=== PATIENT | female | born 1965 | race Caucasian/White ===

== ENCOUNTER 2016-08-17 17:12 | Emergency (ER) | payer BC, OTHER ==
[2016-08-17] MEDS ORDERED: Ondansetron INJ* 2 MG/ML VIAL IV ONE (18:40)
[2016-08-17] MEDS ORDERED: NS 0.9% 1000 ML* 1,000 ML IV ONE (18:40)
[2016-08-17] MEDS ORDERED: diPHENhydraMINE IV* 50 MG/ML 1 ml VIAL (BENADRYL) IV ONE (18:40)
[2016-08-17] MEDS ORDERED: Ketorolac INJ* 30 MG/ML 1 ML VIAL IV ONE (18:40)
[2016-08-17 20:13] LABS: Hematocrit 37 % (35-47); Hemoglobin 12.1 g/dl (12.0-16.0); Mean Corpuscular HGB Conc 33 g/dl (31-36); Mean Corpuscular Hemoglobin 28 pg (27-31); Mean Corpuscular Volume 86 fL (80-97); Mean Platelet Volume 7 um3 (7.4-10.4); Red Blood Count 4.34 10^6/ul (4.0-5.4); Red Cell Distribution Width 14 % (10.5-15); White Blood Count 10.1 10^3/ul (3.5-10.8)
[2016-08-17 20:37] LABS: Albumin 4.2 g/dL (3.2-5.2); BUN/Creatinine Ratio 13.1 (8-20); Calcium 9.6 mg/dL (8.6-10.3); EGFR African American 76.1 (>60); EGFR Non-African American 59.1 (>60); Globulin 3.2 g/dL (2-4); Potassium 4.1 mmol/L (3.5-5.0); Total Bilirubin 0.6 mg/dL (0.2-1.0); Total Protein 7.4 g/dL (6.4-8.9)
[2016-08-17] MEDS ORDERED: Diazepam TAB(*) 5 MG PO ONE (20:41)
[2016-08-17] MEDS ORDERED: Iodixanol* (CONTRAST) 320 MG/ML 100 ML SDV IV ONE (20:54)
[2016-08-17 21:16] VITALS: BP 140/71
--- NOTE | 2016-08-17 22:07 | RAD ---
INDICATION: Headache with left-sided neurologic changes which have resolved. COMPARISON: There are no prior studies available for comparison. TECHNIQUE: Contiguous axial sections of the brain were obtained from the skull base to the vertex without contrast. FINDINGS: The ventricles, cisterns and sulci are within normal limits. There appears to be a small lacunar infarct present within the right lentiform nucleus. No other focal abnormalities or mass effect are seen. There is no evidence for hemorrhage. No significant focal osseous abnormality is seen. The visualized portion of the paranasal sinuses and mastoid air cells appear clear. IMPRESSION: 1. NO EVIDENCE FOR GROSS ACUTE INFARCT, MASS EFFECT OR HEMORRHAGE. 2. 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
--- NOTE | 2016-08-17 22:19 | RAD ---
INDICATION: Headache, left-sided neurologic signs resolved. COMPARISON: Comparison is made with a prior CT of the brain of the same day. TECHNIQUE: A CT angiogram of the head and neck was performed following intravenous injection of 80 ml of Visipaque 320 nonionic contrast. Contiguous axial sections were obtained from the thoracic inlet through the skull vertex. Images were reconstructed in the coronal and sagittal planes and in a 3-D volume rendered format. The distal cervical internal carotid artery diameter is used as the denominator for stenosis measurement. FINDINGS: RIGHT CAROTID: The common and internal carotid arteries appear patent without evidence for hemodynamically significant stenosis. LEFT CAROTID: The common and internal carotid arteries appear patent without evidence for hemodynamically significant stenosis. VERTEBRALS: The vertebral arteries appear patent and bilaterally symmetric. CTA BRAIN: The internal carotid, anterior and middle cerebral arteries appear patent without evidence for high-grade stenosis or occlusion. The vertebral, basilar and posterior cerebral arteries appear patent without evidence for high-grade stenosis or occlusion. No aneurysm or vascular malformation is seen. No areas of hypoperfusion are seen. The lung apices appear clear. No significant enlarged lymph nodes are seen. The parotid, submandibular and thyroid gland appear within normal limits. IMPRESSION: NO EVIDENCE FOR CAROTID STENOSIS OR LARGE VESSEL INTRACRANIAL THROMBUS. CPT II Codes: 3100F
--- NOTE | 2016-08-17 22:29 | ED ---
Nirmala Oconnell Erika, scribed for Indiana Mensah MD on 08/17/16 at 1836 . Neurological HPI - HPI Summary HPI Summary: Patient is a 51-year-old female presenting to the ED with a CC of migraine. Pt has a Hx migraines, and is followed by Dr. Heredia. The current migraine started at 15:00 today. Around 16:30, she lost her vision in her left eye, then developed left-sided weakness, and then developed numbness of her mouth. The only symptom still present is the right-sided migraine. She does now note nausea and vomiting. Pt was referred to the ED by Dr. Anthony for CT and CTA. Pt has a Hx and FHx migraines. She does not smoke or drink. Pt lives with her , and is employed. - History of Current Complaint Stated Complaint: MIGRAINE Time Seen by Provider: 08/17/16 17:13 Hx Obtained From: Patient, EMS Onset/Duration: Gradual Onset, Started hours ago, Resolved - mostly Timing: Constant Onset Severity: Moderate Current Severity: Mild Headache Location: Diffuse (Right) Character: Numbness/Tingling - mouth, Motor Weakness - L side, Sensory Loss - left visual loss Associated Signs and Symptoms: Positive: Nausea/Vomiting - Allergy/Home Medications Allergies/Adverse Reactions: Allergies Allergy/AdvReac Type Severity Reaction Status Date / Time Sumatriptan [From Imitrex] Allergy Intermediate Vomiting Verified 01/05/14 09:57 Narcotics Allergy Severe See Comment Uncoded 01/05/14 09:57 PMH/Surg Hx/FS Hx/Imm Hx Cardiovascular History: Denies: Hx Pacemaker/ICD Respiratory History: Reports: Hx Asthma - INHAILER NEEDED GI History: Reports: Other GI Disorders - ABD PAIN UNKNOW ORIGIN-FOLLOWING GASTRO DOCTOR Sensory History: Denies: Hx Hearing Aid Neurological History: Reports: Hx Migraine Psychiatric History: Denies: Hx Panic Disorder - Cancer History Hx Chemotherapy: No Hx Radiation Therapy: No - Surgical History Surgery Procedure, Year, and Place: TUBAL LIGATION; BENIGN LUMP-PART OF TONSILS REMOVED - Immunization History Date of Tetanus Vaccine: Unknown Infectious Disease History: Denies: Traveled Outside the [place] in Last 30 Days - Family History Known Family History: Positive: Other - migraine - Social History Occupation: Employed Full-time Lives: With Family Alcohol Use: None Hx Substance Use: No Substance Use Type: Reports: None Hx Tobacco Use: No Smoking Status (MU): Never Smoked Tobacco Review of Systems Eyes: Other - lost vision in left eye Positive: Vomiting, Nausea Positive: Headache, Weakness - left-sided, Numbness - mouth All Other Systems Reviewed And Are Negative: Yes Physical Exam Triage Information Reviewed: Yes Vital Signs On Initial Exam: Temp Pulse Resp BP Pulse Ox 98.9 F 88 16 140/71 99 08/17/16 17:15 08/17/16 21:00 08/17/16 20:54 08/17/16 20:00 08/17/16 21:00 Vital Signs Reviewed: Yes Appearance: Positive: Well-Appearing, No Pain Distress Skin: Positive: Warm, Skin Color Reflects Adequate Perfusion, Dry Eyes: Positive: EOMI, RICARDO ENT: Positive: Pharynx normal, TMs normal Neck: Positive: Supple, Nontender Respiratory/Lung Sounds: Positive: Clear to Auscultation, Breath Sounds Present. Negative: Rales, Rhonchi, Wheezes Cardiovascular: Positive: RRR, Other - No gallops. Negative: Murmur, Rub Abdomen Description: Positive: Nontender, Soft, Other: - No rebound. Negative: Distended, Guarding Bowel Sounds: Positive: Present Musculoskeletal: Positive: Other - JIA, no edema Neurological: Positive: Sensory/Motor Intact, Alert, Oriented to Person Place, Time, Other - CN II-XII intact. See NIH stroke scale Psychiatric: Positive: Affect/Mood Appropriate Diagnostics - Vital Signs Vital Signs Temp Pulse Resp BP Pulse Ox 08/17/16 21:00 88 99 08/17/16 20:54 16 08/17/16 20:00 81 140/71 100 08/17/16 19:00 128/65 08/17/16 18:30 75 121/65 99 08/17/16 18:12 110/72 08/17/16 18:08 79 99 08/17/16 18:07 79 99 08/17/16 17:15 98.9 F 72 18 141/92 100 - Laboratory Lab Results: Lab Results 08/17/16 08/17/16 Range/Units 19:30 19:30 WBC 10.1 (3.5-10.8) 10^3/ul RBC 4.34 (4.0-5.4) 10^6/ul Hgb 12.1 (12.0-16.0) g/dl Hct 37 (35-47) % MCV 86 (80-97) fL MCH 28 (27-31) pg MCHC 33 (31-36) g/dl RDW 14 (10.5-15) % Plt Count 343 (150-450) 10^3/ul MPV 7 L (7.4-10.4) um3 Neut % (Auto) 72.4 (38-83) % Lymph % (Auto) 21.6 L (25-47) % Johnson % (Auto) 4.6 (1-9) % Eos % (Auto) 0.7 (0-6) % Baso % (Auto) 0.7 (0-2) % Absolute Neuts (auto) 7.3 (1.5-7.7) 10^3/ul Absolute Lymphs (auto) 2.2 (1.0-4.8) 10^3/ul Absolute Monos (auto) 0.5 (0-0.8) 10^3/ul Absolute Eos (auto) 0.1 (0-0.6) 10^3/ul Absolute Basos (auto) 0.1 (0-0.2) 10^3/ul Absolute Nucleated RBC 0.01 10^3/ul Nucleated RBC % 0.1 Sodium 135 (133-145) mmol/L Potassium 4.1 (3.5-5.0) mmol/L Chloride 101 (101-111) mmol/L Carbon Dioxide 27 (22-32) mmol/L Anion Gap 7 (2-11) mmol/L BUN 13 (6-24) mg/dL Creatinine 0.99 H (0.51-0.95) mg/dL Est GFR ( Amer) 76.1 (>60) Est GFR (Non-Af Amer) 59.1 (>60) BUN/Creatinine Ratio 13.1 (8-20) Glucose 86 (70-100) mg/dL Calcium 9.6 (8.6-10.3) mg/dL Total Bilirubin 0.60 (0.2-1.0) mg/dL AST 24 (13-39) U/L ALT 28 (7-52) U/L Alkaline Phosphatase 21 L (34-104) U/L Total Protein 7.4 (6.4-8.9) g/dL Albumin 4.2 (3.2-5.2) g/dL Globulin 3.2 (2-4) g/dL Albumin/Globulin Ratio 1.3 (1-3) Result Diagrams: 08/17/16 19:30 08/17/16 19:30 Lab Statement: Any lab studies that have been ordered have been reviewed, and results considered in the medical decision making process. - CT CT Brain CT Interpretation Completed By: Radiologist - IMPRESSION: 1. NO EVIDENCE FOR GROSS ACUTE INFARCT, MASS EFFECT OR HEMORRHAGE. 2. 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 CTA Head CT Interpretation Completed By: Radiologist NIH Scale - NIH Scale Level of Consciousness: Alert/Keenly Responsive Ask Patient the Month and His/Her Age: Both Correct Ask Pt to Open/Close Eyes and Neurophysiology Tech/Release Non-Paretic Hand: Both Correctly Best Gaze (Only Horizontal Eye Movement): Normal Visual Field Testing: No Visual Loss Facial Paresis-Pt to Smile & Close Eyes or Grimace Symmetry: Normal/Symmetrical Motor Function - Right Arm: No Drift-Holds 10 Seconds Motor Function - Left Arm: No Drift-Holds 10 Seconds Motor Function - Right Leg: No Drift-Holds 10 Seconds Motor Function - Left Leg: No Drift-Holds 10 Seconds Limb Ataxia-Must be out of Proportion to Weakness Present: Absent Sensory (Use Pinprick to Test Arms/Legs/Trunk/Face): Normal Best Language (Describe Picture, Name Items): No Aphasia Dysarthria (Read Several Words): Normal Extinction and Inattention: No Abnormality Total Score: 0 Course/Dx - Course Course Of Treatment: pt with neurologic symptoms and migraine today, neuro symptoms had resolved before arrival ct and cta head and neck neg ok to followup with neurology - Diagnoses Provider Diagnoses: Migraine Discharge - Discharge Plan Condition: Stable Disposition: HOME Patient Education Materials: Migraine Headache (ED) Referrals: Susy Hodges MD [Primary Care Provider] - Marisela Heredia MD [Medical Doctor] - The documentation as recorded by the Nirmala schaffer Erika accurately reflects the service I personally performed and the decisions made by me, Indiana Mensah MD.
== END 2016-08-17 22:45 | disposition home or self-care (01) ==
LOC: ED 17:12
DX: G43.909 Migraine, unspecified, not intractable, without status migrainosus (principal); R11.2 Nausea with vomiting, unspecified; R51 Headache; R53.1 Weakness
CPT/HCPCS: 36415; 70450; 70496; 70498; 80053; 85025; 96374; 96375; 99283; A9270-GY; J1200; J1885; J2405; Q9967

== ENCOUNTER 2017-05-27 06:33 | Emergency (ER) | payer BC, OTHER ==
[2017-05-27] MEDS ORDERED: NS 0.9% 1000 ML* 1,000 ML IV SCH (07:00)
[2017-05-27] MEDS ORDERED: Ondansetron INJ* 2 MG/ML VIAL IV ONE (07:04)
[2017-05-27] MEDS ORDERED: Ketorolac INJ* 30 MG/ML 1 ML VIAL IV PUSH ONE (07:05)
[2017-05-27 07:41] LABS: Hematocrit 38 % (35-47); Hemoglobin 12.5 g/dl (12.0-16.0); Mean Corpuscular HGB Conc 33 g/dl (31-36); Mean Corpuscular Hemoglobin 28 pg (27-31); Mean Corpuscular Volume 85 fL (80-97); Mean Platelet Volume 7 um3 (7.4-10.4); Red Blood Count 4.46 10^6/ul (4.0-5.4); Red Cell Distribution Width 15 % (10.5-15); White Blood Count 8.2 10^3/ul (3.5-10.8)
[2017-05-27] MEDS ORDERED: Metoclopramide IV* 5 MG/ML 2 ML VIAL IV ONE (07:41)
[2017-05-27] MEDS ORDERED: diPHENhydraMINE IV* 50 MG/ML 1 ml VIAL (BENADRYL) IV ONE (07:41)
[2017-05-27 07:52] LABS: Calcium 9.6 mg/dL (8.6-10.3); EGFR African American 106.4 (>60); EGFR Non-African American 82.7 (>60); Potassium 3.6 mmol/L (3.5-5.0)
[2017-05-27] MEDS ORDERED: LORazepam INJ* 2 MG/ML 1 ML VIAL IV ONE (08:33)
[2017-05-27 10:01] VITALS: BP 136/79
--- NOTE | 2017-05-27 12:43 | PN ---
Bear Oconnell SooYoung, scribed for Parker Lazar MD on 05/27/17 at 0858 . Progress Note - Progress Note Date of Service: 05/27/17 Note: SO from Dr. Puga at shift change, pending labs, reeval, dispo. 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 Pt migraine has improved. DX: MIGRAINE HEADACHE DISPO: Stable, home. F/U with PCP. The documentation as recorded by the jarrellibBaer jin SooYoung accurately reflects the service I personally performed and the decisions made by , Parker Lazar MD.
== END 2017-05-27 10:00 | disposition home or self-care (01) ==
LOC: ED 06:33
DX: G43.909 Migraine, unspecified, not intractable, without status migrainosus (principal)
CPT/HCPCS: 36415; 80048; 85025; 96374; 96375; 99282; J1200; J1885; J2060; J2405; J2765

== ENCOUNTER 2018-01-28 12:49 | Emergency (ER) | payer BC, OTHER ==
[2018-01-28] MEDS ORDERED: Metoclopramide IV* 5 MG/ML 2 ML VIAL IV ONE (13:15)
[2018-01-28] MEDS ORDERED: Ketorolac INJ* 30 MG/ML 1 ML VIAL IV PUSH ONE (13:15)
[2018-01-28] MEDS ORDERED: diPHENhydraMINE IV* 50 MG/ML 1 ml VIAL (BENADRYL) IV ONE (13:15)
[2018-01-28] MEDS ORDERED: NS 0.9% 1000 ML* 1,000 ML IV ONE (13:15)
--- NOTE | 2018-01-28 13:27 | ED ---
Headache - HPI Summary HPI Summary: This is [address] documenting for attending Miguel Angel Ramos M.D. Pt is a 52 y/o female who presents to the ED c/o migraine since 11:00. She states she started to feel nauseated before work, but this resolved. The headache began over her right forehead and she lost vision in her right eye, which is normal. The pain is now over the left forehead, which is unusual. She also c/o photophobia, neck pain, and right arm numbness/tingling. Pt states she went home from work and felt sicker than usual. She tried to call her friends for help but couldnt recognize the names. Pain is rated 8/10 in severity. PMHx migraine, and sees Dr. Heredia. - History Of Current Complaint Chief Complaint: EDHeadache Stated Complaint: MIGRAINE Time Seen by Provider: 01/28/18 13:14 Hx Obtained From: Patient Onset/Duration: Gradual Onset, Started hours ago - 11:00, Still Present Initially Headache Was: Severe Currently Pain Is: Current Pain Scale(0-10)= - 8, Severe Timing: Constant Character: Migraine Location of Headache: Frontal - L>R forehead Aggravating Factor: Bright Lights Allevating Factors: Nothing Associated Signs And Symptoms: Nausea, Neck Pain, Visual Changes Related History: Similar Episode/DX As: - Migraines - Allergies/Home Medications Allergies/Adverse Reactions: Allergies Allergy/AdvReac Type Severity Reaction Status Date / Time codeine Allergy Vomiting Verified 01/28/18 14:58 sumatriptan [From Imitrex] Allergy Vomiting Verified 01/28/18 14:58 PMH/Surg Hx/FS Hx/Imm Hx Endocrine/Hematology History: Denies: Hx Diabetes Cardiovascular History: Denies: Hx Hypertension, Hx Pacemaker/ICD Respiratory History: Reports: Hx Asthma - INHAILER NEEDED GI History: Reports: Other GI Disorders - ABD PAIN UNKNOW ORIGIN-FOLLOWING GASTRO DOCTOR History: Denies: Hx Renal Disease Sensory History: Denies: Hx Hearing Aid Neurological History: Reports: Hx Migraine Psychiatric History: Reports: Hx Anxiety, Hx Depression Denies: Hx Panic Disorder - Cancer History Hx Chemotherapy: No Hx Radiation Therapy: No - Surgical History Surgery Procedure, Year, and Place: TUBAL LIGATION; BENIGN LUMP-PART OF TONSILS REMOVED - Immunization History Date of Tetanus Vaccine: Unknown Infectious Disease History: No Infectious Disease History: Denies: Traveled Outside the [place] in Last 30 Days - Family History Known Family History: Positive: Other - migraine - Social History Alcohol Use: Rare Alcohol Amount: wine 1 glass Hx Substance Use: No Substance Use Type: Reports: None Hx Tobacco Use: No Smoking Status (MU): Never Smoked Tobacco Review of Systems Positive: Photophobia, Other - Right eye blindness Positive: Nausea Positive: Other - Neck pain Neurological: Other - Tingling - right arm, memory loss temporary Positive: Headache, Numbness - Right arm All Other Systems Reviewed And Are Negative: Yes Physical Exam - Summary Physical Exam Summary: Appearance: Well appearing, no pain distress Skin: warm, dry, reflects adequate perfusion Head/face: normal, temporal arteries non-tender Eyes: EOMI, RICARDO, globes soft, photophobia ENT: normal Neck: supple, non-tender Respiratory: CTA, breath sounds present Cardiovascular: RRR, pulses symmetrical Abdomen: non-tender, soft Bowel Sounds: present Musculoskeletal: normal, strength/ROM intact Neuro: normal, sensory motor intact, A&Ox3 Triage Information Reviewed: Yes Vital Signs On Initial Exam: Initial Vitals Temp Pulse Resp BP Pulse Ox 98.8 F 87 14 140/73 98 01/28/18 13:12 01/28/18 13:12 01/28/18 13:12 01/28/18 13:12 01/28/18 13:12 Vital Signs Reviewed: Yes Diagnostics - Vital Signs Vital Signs Temp Pulse Resp BP Pulse Ox 01/28/18 13:12 98.8 F 87 14 140/73 98 - Laboratory Lab Statement: Any lab studies that have been ordered have been reviewed, and results considered in the medical decision making process. Re-Evaluation - Re-Evaluation First Eval Re-Evaluation Time: 14:20 Change: Improved Comment: Headache is much better. Pt wants to go home. Headache Course/Dx - Course Course Of Treatment: Patient with long-standing history of migraine headache who sees the neurologist presents with significant migraine today. She did have some brief confusion earlier but now has normal neurologic exam with NIH stroke score of 0. She was treated in conventional fashion for her headache syndrome with near total relief. She'll follow-up with her neurologist and family doctor. - Diagnoses Provider Diagnoses: Migraine headache Discharge - Sign-Out/Discharge Documenting (check all that apply): Patient Departure - Discharge - Discharge Plan Condition: Improved Disposition: HOME Prescriptions: Promethazine TAB* [Phenergan Tab*] 25 mg PO Q6H PRN #20 tab PRN Reason: headache, nausea Patient Education Materials: Migraine Headache (ED) Referrals: Susy Hodges MD [Primary Care Provider] - Marisela Heredia MD [Medical Doctor] - Additional Instructions: Stay well-hydrated. Caffeine may help. Return if worse, new symptoms, or other concerns as discussed. - Billing Disposition and Condition Condition: IMPROVED Disposition: Home
[2018-01-28 14:44] VITALS: BP 139/76
== END 2018-01-28 14:43 | disposition home or self-care (01) ==
LOC: ED 12:49
DX: G43.909 Migraine, unspecified, not intractable, without status migrainosus (principal); J45.909 Unspecified asthma, uncomplicated; F41.9 Anxiety disorder, unspecified; F32.9 Major depressive disorder, single episode, unspecified; Z88.5 Allergy status to narcotic agent; Z88.8 Allergy status to other drugs, medicaments and biological substances
CPT/HCPCS: 96374; 96375; 99282; J1200; J1885; J2765

== ENCOUNTER 2019-09-07 16:12 | Emergency (ER) | payer BC ==
[2019-09-07] MEDS ORDERED: Pantoprazole IV* 40 MG IV ONE (16:35)
--- NOTE | 2019-09-07 16:35 | ED ---
Abdominal Pain/Female - HPI Summary HPI Summary: 54 y/o female presented to [facility] complaining of intermittent cramping epigastric pain present since this morning at 0600. Pain gets worse with oral intake and at 1300 moved lower in her abdomen and radiated to her flank. Pt notes pain was so severe she was doubled over for a significant amount of time. Pt notes that she has been uncomfortable for 2 days and has had trouble lifting her arms. Stool is normal, and the pt has vomited once but denies diarrhea. She drinks a small amount of alcohol every day and notes hx of migraines, but hx of cardiac disease, HTN, kidney stones, ulcers, or pancreatitis. She has chronic constipation due to medications. Home Medications Medication Instructions Recorded Confirmed Type Diazepam TAB(*) [Valium TAB(*)] 10 mg PO TID PRN 01/05/14 04/26/17 History Levothyroxine TAB* [Synthroid 88 88 mcg PO 0700 01/05/14 04/26/17 History MCG TAB*] Zolpidem TAB* [Ambien*] 10 mg PO BEDTIME PRN 01/05/14 04/26/17 History Budesonide/Formote 80/4.5(NF) 1 puff INH BID PRN 04/23/17 04/26/17 History [Symbicort 80/4.5 (NF)] Ibuprofen TAB* [Motrin TAB* 800 MG] 800 mg PO TID PRN 04/23/17 04/26/17 History Maxalt(NF) 5 mg PO DAILY 04/26/17 04/26/17 History Zofran 8 MG Odt 8 mg PO DAILY PRN 04/26/17 04/26/17 History Promethazine 25 mg TAB [Phenergan 25 mg PO Q6H PRN #20 tab 01/28/18 Rx 25 mg TAB] - History of Current Complaint Chief Complaint: EDAbdPain Stated Complaint: ABD PAIN Time Seen by Provider: 09/07/19 16:14 Hx Obtained From: Patient Severity Currently: Moderate Pain Intensity: 4 Pain Scale Used: 0-10 Numeric Location: Epigastric Radiates to: Flank Character: Cramping Aggravating Factor(s): Food Alleviating Factor(s): Nothing Associated Signs and Symptoms: Positive: Vomiting, Other: - decreased oral intake. Negative: Diarrhea Allergies/Adverse Reactions: Allergies Allergy/AdvReac Type Severity Reaction Status Date / Time codeine Allergy Vomiting Verified 01/28/18 14:58 sumatriptan [From Imitrex] Allergy Vomiting Verified 01/28/18 14:58 Home Medications: Home Medications Diazepam TAB(*) [Valium TAB(*)] 10 mg PO TID PRN 01/05/14 [History Confirmed 07/01] Levothyroxine TAB* [Synthroid 88 MCG TAB*] 88 mcg PO 0700 01/05/14 [History Confirmed 04/26/17] Zolpidem TAB* [Ambien*] 10 mg PO BEDTIME PRN 01/05/14 [History Confirmed ] Budesonide/Formote 80/4.5(NF) [Symbicort 80/4.5 (NF)] 1 puff INH BID PRN [History Confirmed 04/26/17] Ibuprofen TAB* [Motrin TAB* 800 MG] 800 mg PO TID PRN 04/23/17 [History Confirmed 04/26/17] Maxalt(NF) 5 mg PO DAILY 04/26/17 [History Confirmed 04/26/17] Zofran 8 MG Odt 8 mg PO DAILY PRN 04/26/17 [History Confirmed 04/26/17] Promethazine 25 mg TAB [Phenergan 25 mg TAB] 25 mg PO Q6H PRN #20 tab 01/28/18 [ Rx] PMH/Surg Hx/FS Hx/Imm Hx Endocrine/Hematology History: Reports: Hx Diabetes - NO MEDS BALANCES FOOD AND DIET Cardiovascular History: Denies: Hx Hypertension, Hx Pacemaker/ICD Respiratory History: Reports: Hx Asthma - INHAILER NEEDED GI History: Reports: Other GI Disorders - ABD PAIN UNKNOW ORIGIN-FOLLOWING GASTRO DOCTOR History: Denies: Hx Renal Disease Sensory History: Denies: Hx Hearing Aid Neurological History: Reports: Hx Migraine Psychiatric History: Reports: Hx Anxiety, Hx Depression Denies: Hx Panic Disorder - Cancer History Hx Chemotherapy: No Hx Radiation Therapy: No - Surgical History Surgery Procedure, Year, and Place: TUBAL LIGATION; BENIGN LUMP-PART OF TONSILS REMOVED - Immunization History Date of Tetanus Vaccine: Unknown Infectious Disease History: No Infectious Disease History: Denies: Traveled Outside the [place] in Last 30 Days - Family History Known Family History: Positive: Other - migraine - Social History Alcohol Use: Daily Alcohol Amount: wine 1 glass Hx Substance Use: No Substance Use Type: Reports: Marijuana Hx Tobacco Use: No Smoking Status (MU): Former Smoker Review of Systems Positive: Abdominal Pain, Vomiting, Other - constipation. Negative: Diarrhea Positive: Other - trouble lifting arms All Other Systems Reviewed And Are Negative: Yes Physical Exam - Summary Physical Exam Summary: Constitutional: Well-developed, Well-nourished, Alert. (-) Distressed Skin: Warm, Dry HENT: Normocephalic; Atraumatic Eyes: Conjunctiva normal Neck: Musculoskeletal ROM normal neck. (-) JVD, (-) Stridor, (-) Tracheal deviation Cardio: Rhythm regular, rate normal, Heart sounds normal; Intact distal pulses; The pedal pulses are 2+ and symmetric. Radial pulses are 2+ and symmetric. (-) Murmur Pulmonary/Chest wall: Effort normal. (-) Respiratory distress, (-) Wheezes, (-) Rales Abd: Soft, (+) Epigastric tenderness, (-) Distension, (-) Guarding, (-) Rebound Musculoskeletal: (-) Edema Lymph: (-) Cervical adenopathy Neuro: Alert, Oriented x3 Psych: Mood and affect Normal MARIAH: No gross blood; chaperoned by female nurse. Triage Information Reviewed: Yes Vital Signs On Initial Exam: Initial Vitals Pulse BP Pulse Ox 78 146/87 100 09/07/19 16:19 09/07/19 16:19 09/07/19 16:19 Vital Signs Reviewed: Yes Procedures - Sedation Patient Received Moderate/Deep Sedation with Procedure: No Diagnostics - Vital Signs Vital Signs Temp Pulse Resp BP Pulse Ox 09/07/19 16:23 98.5 F 88 16 146/87 97 09/07/19 16:19 78 146/87 100 - Laboratory Result Diagrams: 09/07/19 16:41 09/07/19 16:41 Lab Statement: Any lab studies that have been ordered have been reviewed, and results considered in the medical decision making process. - Radiology cxr Summary of Radiographic Findings: IMPRESSION: NO ACTIVE CARDIOPULMONARY DISEASE. This report was reviewed by Dr. Parsons. - CT abd/pel CT Interpretation Completed By: Radiologist Summary of CT Findings: IMPRESSION: 1. There is an incompletely characterized indeterminate low-attenuation lesion. at the dome of the liver measuring a maximum of 1.8 cm. May be more accurately. assessed with CT or MRI multiphasic hepatic mass protocol on a non emergent. basis. 2. No other acute CT pathology. This report was reviewed by Dr. Parsons. - EKG 1653 Cardiac Rate: NL EKG Rhythm: Sinus Rhythm Summary of EKG Findings: EKG at 1653 shows NSR at 70bpm. Borderline t-wave abnormalities in inferior leads. This EKG was reviewed and interpreted by Dr. Parsons. Abdominal Pain Fem Course/Dx - Course Course Of Treatment: 54 y/o female presented to [facility] complaining of intermittent cramping epigastric pain present since this morning at 0600. Pain gets worse with oral intake and at 1300 moved lower in her abdomen and radiated to her flank. Pt notes pain was so severe she was doubled over for a significant amount of time. Pt notes that she has been uncomfortable for 2 days and has had trouble lifting her arms. Stool is normal, and the pt has vomited once but denies diarrhea. She drinks a small amount of alcohol every day and notes hx of migraines, but hx of cardiac disease, HTN, kidney stones, ulcers, or pancreatitis. She has chronic constipation due to medications. Exam showed epigastric tenderness. Bloodwork showed MPV L, creatinine H, Glc H, Ca H, and Alk L. UA showed specific gravity L, blood, squamous epithelium, and bacteria. EKG at 1653 shows NSR at 70bpm. Borderline t-wave abnormalities in inferior leads. X-ray chest showed NO ACTIVE CARDIOPULMONARY DISEASE. CT abd/pel showed 1. There is an incompletely characterized indeterminate low-attenuation lesion. at the dome of the liver measuring a maximum of 1.8 cm. May be more accurately. assessed with CT or MRI multiphasic hepatic mass protocol on a non emergent. basis. 2. No other acute CT pathology. Pt was given 89ml IV Iodixanol, 4mg IV Morphine, 4mg IV Zofran, and 80mg IV Protonix. Patient feeling better and comfortable with discharge home. Tolerating by mouth liquids. Even GI referral for further evaluation and possible upper endoscopy. Pt was diagnosed with gastritis, and discharged to home. - Diagnoses Provider Diagnoses: Gastritis Discharge ED - Sign-Out/Discharge Documenting (check all that apply): Patient Departure - dc - Discharge Plan Condition: Stable Disposition: HOME Patient Education Materials: Gastritis (ED) Referrals: Susy Hodges MD [Primary Care Provider] - Jeremiah Reyes MD [Medical Doctor] - Additional Instructions: Follow up with gastroenterology at first available appointment. If you experience new or worsening symptoms please return to the ER. - Billing Disposition and Condition Condition: STABLE Disposition: Home - Attestation Statements Document Initiated by Scribe: Yes Documenting Scribe: Real Galvez Provider For Whom Wendy is Documenting (Include Credential): Ry Parsons DO Scribe Attestation: Rela Ocnonell, scribed for Ry Parsons DO on 09/07/19 at 2024. Scribe Documentation Reviewed: Yes Provider Attestation: The documentation as recorded by the scribe, Real Galvez accurately reflects the service I personally performed and the decisions made by Ry bender DO Status of Scribe Document: Viewed
[2019-09-07] MEDS ORDERED: Morphine 4 MG/ML VIAL (1 ml) 4 MG/ML VIAL IV ONE (16:37)
[2019-09-07] MEDS ORDERED: Ondansetron INJ* 2 MG/ML VIAL IV ONE (16:37)
[2019-09-07 16:49] LABS: ABS Basophils 0.1 10^3/ul (0-0.2); ABS Lymphocytes 1.7 10^3/ul (1.0-4.8); ABS Monocytes 0.3 10^3/ul (0-0.8); ABS Neutrophils 4.5 10^3/ul (1.5-7.7); Eosinophil % 0.6 %; Hematocrit 38 % (35-47); Hemoglobin 12.9 g/dL (12.0-16.0); Lymphocyte % 26.4 %; Mean Corpuscular HGB Conc 34 g/dL (31-36); Mean Corpuscular Hemoglobin 31 pg (27-31); Mean Corpuscular Volume 90 fL (80-97); Mean Platelet Volume 6.7 fL (7.4-10.4); Platelet Count 333 10^3/uL (150-450); Red Cell Distribution Width 14 % (10-15); White Blood Count 6.6 10^3/uL (3.5-10.8)
--- OUTSIDE RECORDS SUMMARY | 2019-09-07 17:01 | XMS REPORT | Summary of Care ---
:1965 Author Organization [facility] Address [address] [facility] [place] [address] Care Team Providers Name Role Phone Susy Hodges MD Primary Care Provider Reason for Referral Diagnostic Testing (Routine) Status Reason Specialty Diagnoses / Referred By Referred To Procedures Contact Contact Authorized Diagnoses Pre-operative clearance Troy Izaguirre, Procedures PRE-OP 12-LEAD EKG (PAS) [address] [place] [address] Evaluate and Establish Treatment Plan (Routine) Status Reason Specialty Diagnoses / Referred By Referred To Procedures Contact Contact Pending Review Occupational Diagnoses Pre-operative clearance Z[place], [place] [address] [place] [address] [address] [place] [address] Scheduling Instructions [address] Reason for Visit Reason Comments Worker's Compensation thumb pain right DOI 04/02/19 Encounter Details Date Type Department Care Team Description 07/31/2019 Office Visit [facility] - Troy Izaguirre, Pre- operative clearance (Primary Dx); Sunshine MERCADO Thumb pain, right [address] [place] [address] [place], [place] [phone] Allergies No Known Allergiesdocumented as of this encounter (statuses as of 07/31/2019) Medications Medication Sig Dispensed Refills Start Date End Date Status ibuprofen (MOTRIN) 800 Take 800 mg by 0 Active MG Oral Tab mouth EVERY SIX HOURS NEEDED for Pain. ACETAMINOPHEN PO Take by mouth. 0 Active levothyroxine Take 88 mcg by 0 Active (SYNTHROID) 88 MCG Oral mouth BEFORE Tab BREAKFAST. buPROPion HCl Take by mouth. 0 Active (WELLBUTRIN PO) diazePAM (VALIUM PO) Take by mouth. 0 Active Verapamil (ISOPTIN SR, 0 03/03/2019 Active CALAN SR) 180 MG Oral Tab CR Tizanidine HCl 0 01/02/2019 Active (ZANAFLEX) 2 MG Oral Cap Rizatriptan Benzoate 10 0 01/13/2019 Active MG Oral Tab LORazepam (ATIVAN) 2 MG 0 02/19/2019 Active Oral Tab ondansetron (ZOFRAN 0 02/24/2019 Active ODT) 8 MG Oral TABLET DISPERSIBLE Erenumab-aooe (AIMOVIG) Inject beneath 0 Active 70 MG/ML Subcutaneous the skin. Solution Auto-injector methylPREDNISolone, Take as directed 21 Tab 0 05/29/2019 Active dose-gilbert, (MEDROL) 4 MG Oral Tablet Therapy Pack documented as of this encounter (statuses as of 07/31/2019) Active Problems Problem Noted Date Thumb pain, right 05/02/2019 Carpal tunnel syndrome of left wrist 03/20/2019 Overview: Added automatically from request for surgery [id number] Disorders of bursae and tendons in shoulder region, unspecified 02/16/2014 Shoulder pain, right 10/03/2013 documented as of this encounter (statuses as of 07/31/2019) Social History Tobacco Use Types Packs/Day Years Used Date Never Smoker Smokeless Tobacco: Never Used Alcohol Use Drinks/Week oz/Week Comments Yes 2 Standard drinks or equivalent 1.7 Alcohol Habits Answer Date Recorded How often do you have a drink containing alcohol? 2-3 times a week 04/01/2019 How many drinks containing alcohol do you have on a Not asked typical day when you are drinking? How often do you have six or more drinks on one Not asked occasion? Sex Assigned at Date Recorded Not on file Job Start Date Occupation Industry Not on file Not on file Not on file Travel History Travel Start Travel End No recent travel history available. documented as of this encounter Last Filed Vital Signs Vital Sign Reading Time Taken Comments Blood Pressure - - Pulse - - Temperature - - Respiratory Rate - - Oxygen Saturation - - Inhaled Oxygen Concentration - - Weight 71.2 kg (157 lb) 07/31/2019 2:38 PM EST Height 165.1 cm (5' 5") 07/31/2019 2:38 PM EST Body Mass Index 26.13 07/31/2019 2:38 PM EST documented in this encounter Progress Notes Troy Izaguirre MD - 07/31/2019 2:30 PM EST Name: Rashmi Madison : 1965 Date of service: 07/31/2019 Chief Complaint Patient presents with Worker's Compensation thumb pain right DOI 04/02/19 HPI: Rashmi Madison is a 54-y.o. y/o female, who presents at the request of Troy Izaguirre for evaluation. Fariba continues to have pain at her right thumb. MRI shows complete tear of the radial collateral ligament. There is also some chondromalacia at the MP joint. PAST MEDICAL HISTORY: She has a past medical history of Anxiety, Migraines, and Thyroid disease. PAST SURGICAL HISTORY: She has a past surgical history that includes laparoscopic tubal ligation; carpal tunnel release (2007); and leep, conization of cervix. MEDICATIONS: Current Outpatient Medications: ACETAMINOPHEN PO, Take by mouth., Disp: , Rfl: buPROPion HCl (WELLBUTRIN PO), Take by mouth., Disp: , Rfl: diazePAM (VALIUM PO), Take by mouth., Disp: , Rfl: Erenumab-aooe (AIMOVIG) 70 MG/ML Subcutaneous Solution Auto-injector, Inject beneath the skin., Disp: , Rfl: ibuprofen (MOTRIN) 800 MG Oral Tab, Take 800 mg by mouth EVERY SIX HOURS NEEDED for Pain., Disp: , Rfl: levothyroxine (SYNTHROID) 88 MCG Oral Tab, Take 88 mcg by mouth BEFORE BREAKFAST., Disp: , Rfl: LORazepam (ATIVAN) 2 MG Oral Tab, , Disp: , Rfl: methylPREDNISolone, dose-gilbert, (MEDROL) 4 MG Oral Tablet Therapy Pack, Take as directed, Disp: 21 Tab, Rfl: 0 ondansetron (ZOFRAN ODT) 8 MG Oral TABLET DISPERSIBLE, , Disp: , Rfl: Rizatriptan Benzoate 10 MG Oral Tab, , Disp: , Rfl: Tizanidine HCl (ZANAFLEX) 2 MG Oral Cap, , Disp: , Rfl: Verapamil (ISOPTIN SR, CALAN SR) 180 MG Oral Tab CR, , Disp: , Rfl: ALLERGIES: She has No Known Allergies. SOCIAL HISTORY: She reports that she has never smoked. She has never used smokeless tobacco. She reports current alcohol use of about 1.7 standard drinks of alcohol per week. FAMILY HISTORY: family history includes Arthritis in her father and mother; Cancer in her father andsister; Diabetes in her maternal grandmother; Heart in her father; Stroke in her maternal grandmother. ROS: There are no exam notes on file for this visit. I reviewed the above and have made changes as appropriate. Physical Exam: Vitals: Ht 5' 5" (1.651 m) Wt 157 lb (71.2 kg) BMI 26.13 kg/m2 Gen: NAD, A&Ox3 SKIN/PALPATION: Normal rugal patterns, sweat, turgor, and temperature. Cuticles , nails, nail curvature, and pulp bulk are essentially normal in appearance. No skin changes. SWELLING: none WARMTH: no warmth DEFORMITY: no gross deformity or malalignment NEUROLOGICAL EXAM: Sensation intact to light touch. VASCULAR EXAM: Capillary refill is <2 seconds. There remains pain with stressing in the ulnar direction at the MP joint there is significant laxity Imaging & Tests: Assessment: ICD-9-CM ICD-10-CM 1. Pre-operative clearance V72.84 Z01.818 REFER TO OCCUPATIONAL THERAPY / REHAB CBC WITH DIFFERENTIAL COMPREHENSIVE METABOLIC PANEL PRE-OP 12-LEAD EKG (PAS) PROTHROMBIN TIME 2. Thumb pain, right 729.5 M79.644 Radial collateral ligament complete tear. Surgery is recommended for reconstruction. Surgery is recommended. The risks of surgery were discussed with the patient to include but not be limited to infection, damage to neighboring structures, such as nerves vessels, tendons, and the possibility of continued symptoms postop. The patient understands risks of surgery and wished to go ahead. Plan & Discussion: --Radial collateral ligament repair MP joint right thumb 3 to 5 days after surgery will have splint made by therapy I will see her in 2 weeks for suture removal No x-rays will be necessary Troy Izaguirre MD Hand Surgery 07/31/2019 documented in this encounter Plan of Treatment Date Type Specialty Care Team Description 08/01/2019 Office Visit Orthopedics Richard Zimmerman MD [address] [facility] [place] [address] [phone] 08/01/2019 Ancillary Procedure Radiology Name Type Priority Associated Diagnoses Order Schedule CBC WITH DIFFERENTIAL Lab Routine Pre-operative clearance Expected: 2019 (Approximate), Expires: 07/31/2020 COMPREHENSIVE METABOLIC Lab Routine Pre-operative clearance Expected: 07/31 PANEL (Approximate), Expires: 07/31/2020 PRE-OP 12-LEAD EKG (PAS) EKG Routine Pre-operative clearance Expected: , Expires: 09/03/2020 PROTHROMBIN TIME Lab Routine Pre-operative clearance Expected: 07/31/2019 (Approximate), Expires: 07/31/2020 Name Type Priority Associated Diagnoses Order Schedule REFER TO OCCUPATIONAL Referral Routine Pre-operative 99 Occurrences THERAPY / REHAB clearance starting 07/31/2019 until 07/31/2020 Health Maintenance Due Date Last Done Comments DTaP/Tdap/Td Vaccines (1 - Tdap) 1976 DEPRESSION SCREENING 1977 HIV SCREENING 1980 DIABETES SCREENING 1983 LIPID DISORDER SCREENING 1983 PAP SMEAR 1986 MAMMOGRAM (SCREENING) 2005 Colonoscopy 2015 ZOSTER IMMUNIZATION SERIES (1 of 2) 2015 INFLUENZA VACCINE (#1) 2019 HEPATITIS A IMMUNIZATION SERIES Aged Out No longer eligible based on patient's age to complete this topic HPV IMMUNIZATION SERIES Aged Out No longer eligible based on patient's age to complete this topic MENINGOCOCCAL VACCINE IMM Aged Out No longer eligible based on patient's age to complete this topic PNEUMOCOCCAL 0-64 YRS Aged Out No longer eligible based on patient's age to complete this topic documented as of this encounter Results Not on filedocumented in this encounter Visit Diagnoses Diagnosis Pre-operative clearance Preoperative examination, unspecified Thumb pain, right documented in this encounter Insurance Payer Benefit Plan / Subscriber ID Effective Dates Phone Address Type Group [employer] [place] xxxxxxxx-xxx 2019-[place] Workers Comp COMP [facility] GENERIC [phone] [id number] (Work) documented as of this encounter
--- OUTSIDE RECORDS SUMMARY | 2019-09-07 17:01 | XMS REPORT | Continuity of Care Document ---
:1965 External Reference #:[id number] Author Name Dalton Baron NP (transmitted by agent of provider Katie Ferrara) Address [address] [facility], [place] [address] Care Team Providers Name Role Phone Physical Therapy [facility] - Care Team Information Service Center Coordinator [phone] Physical Therapist Susy Hodges MD - Internal Care Team Information Service Center Coordinator Medicine Problems Active Problems Provider Date Refractory migraine Marisela Heredia M.D. Onset: 08/03/2014 Carpal tunnel syndrome Marisela Heredia M.D. Onset: 07/01/2015 Note: mild left: emg/ncs 07/01/15 Localized, primary osteoarthritis Martha Kruger M.D. Onset: 12/03/2017 Social History Type Date Description Comments Sex Unknown Cigarette Use Negative For Never Smoked Cigarettes ETOH Use Currently consumes 2 drinks five days alcohol a week Tobacco Use Start: Unknown Patient has never smoked Recreational Drug Use Denies Drug Use Smoking Status Reviewed: 08/06/19 Patient has never smoked Exercise Type/Frequency Exercises sporadically Exercise Type/Frequency walks on occ. Allergies, Adverse Reactions, Alerts Active Allergies Reaction Severity Comments Date Codeine reaction: increased headaches 01/18/2018 Inactive Allergies NKDA 05/25/2009 Medications Active Medications SIG Qnty Indications Ordering Date Provider Aimovig inject once a 1ml Marisela Heredia, 04/22/2019 70mg/ml Solution month, sq M.D. Auto-Inject Verapamil HCL ER 1 by mouth every 90tabs G43.109 Marisela Heredia, 12/25/2018 180mg night at bedtime M.D. Tablets ER Tizanidine HCL take 1-2 by 180caps Dany 01/31/2018 2mg Capsules mouth at bedtime Mal Don Rizatriptan Benzoate 1 by mouth as 12tabs G43.919 Marisela Heredia, 2016 10mg needed headache, M.D. Tablets may repeat after 2 hours, maximum 2 in a day, max 2 days a week Zofran Odt take 1 by mouth 60tabs Marisela Heredia, 05/15/2012 8mg Tablets q8 hours, as M.D. Dispers needed nausea Valium 1 tab by mouth 20tabs Marisela Heredia, 10mg Tablets twice a day as M.D. needed headaches (do not mix with lorazepam) Diphenhydramine HCL 1 tab po once Unknown 25mg daily prn Tablets Ibuprofen 4 tabs po as Unknown 200mg Capsules needed Ambien take 1/2 tab as Unknown 10mg Tablets needed for insomnia Magnesium Glyginate take 2 by mouth Unknown 125mg each day Tablets Ativan prn Unknown 1mg Tablets Bupropion HCL 1 by mouth three Unknown 75mg Tablets times a day Medications Administered in Office Medication SIG Qnty Indications Ordering Provider Date Injection Onabotulinumtoxin A, Marisela Heredia M.D. 08/09/2018 1 Unit Injection Injection Onabotulinumtoxin Marisela Hodges M.D. 05/03/2018 1 Unit Injection Synvisc Or Synvisc-One Martha Kruger M.D. 05/01/2018 Injection 1 MG Injection Synvisc Or Synvisc-One Martha Kruger M.D. 04/24/2018 Injection 1 MG Injection Synvisc Or Synvisc-One Martha Kruger M.D. 04/24/2018 Injection 1 MG Injection Synvisc Or Synvisc-One Martha Kruger M.D. 04/17/2018 Injection 1 MG Injection Synvisc Or Synvisc-One Martha Kruger M.D. 04/17/2018 Injection 1 MG Injection Synvisc Or Synvisc-One Martha Kruger M.D. 04/10/2018 Injection 1 MG Injection Depomedrol 40MG Martha Slick, M.D. 02/08/2018 Injection Injection Onabotulinumtoxin A, Marisela Heredia M.D. 01/18/2018 1 Unit Injection Depomedrol 40MG Joseph Patel MD 12/04/2017 Injection Depomedrol 40MG Martha Kruger M.D. 12/03/2017 Injection Injection Onabotulinumtoxin A, Marisela Heredia M.D. 07/20/2017 1 Unit Injection Depomedrol 40MG Joseph Patel MD 04/25/2017 Injection Injection Onabotulinumtoxin A, Marisela Heredia M.D. 04/18/2017 1 Unit Injection Injection Onabotulinumtoxin A, Marisela Heredia M.D. 01/12/2017 1 Unit Injection Injection Onabotulinumtoxin A, Marisela Heredia M.D. 10/11/2016 1 Unit Injection Injection Onabotulinumtoxin A, Marisela Romo NP 06/29/2016 1 Unit Injection Injection Onabotulinumtoxin A, Marisela Heredia M.D. 02/16/2016 1 Unit Injection Injection Onabotulinumtoxin A, Marisela Heredia M.D. 08/18/2015 1 Unit Injection Injection Onabotulinumtoxin A, Aleean Purcell, GLADYS 05/12/2015 1 Unit Injection Injection Onabotulinumtoxin A, Aleena Purcell, GLADYS 02/03/2015 1 Unit Injection Injection Onabotulinumtoxin A, Aleena Purcell NP 11/03/2014 1 Unit Injection Injection Onabotulinumtoxin A, Marisela Heredia M.D. 08/03/2014 1 Unit Injection Injection Onabotulinumtoxin A, Marisela Heredia M.D. 04/13/2014 1 Unit Injection Injection Onabotulinumtoxin A, Marisela Heredia M.D. 01/07/2014 1 Unit Injection Injection Onabotulinumtoxin A, Marisela Heredia M.D. 10/02/2013 1 Unit Injection Injection Onabotulinumtoxin A, Marisela Heredia M.D. 10/02/2013 1 Unit Injection Injection Onabotulinumtoxin A, Marisela Timmonsy, M.D. 07/08/2013 1 Unit Injection Injection OnotulinumtoMarisela Harvey M.D. 04/16/2013 1 Unit Injection Injection OnabotulinumtoMarisela Harvey M.D. 10/30/2012 1 Unit Injection Injection OnabotulinumtoMarisela Harvey M.D. 07/24/2012 1 Unit Injection Depomedrol 40MG Gennaro Mayorga M.D. 06/03/2012 Injection Immunizations CPT Code Status Date Vaccine Lot # 14849 Given 05/25/2009 Influenza Virus Vaccine, Pandemic Formulation [id number] Given 05/25/2009 Administration Swine Flu Shot Vital Signs Date Vital Result Comment 08/06/2019 3:56pm Height 65 inches 5'5" Weight 157.00 lb Heart Rate 76 /min BP Systolic Sitting 130 mmHg BP Diastolic Sitting 76 mmHg Respiratory Rate 18 /min BMI (Body Mass Index) 26.1 kg/m2 04/18/2019 8:01am Height 65 inches 5'5" Weight 157.00 lb Heart Rate 68 /min BP Systolic 130 mmHg BP Diastolic 74 mmHg BMI (Body Mass Index) 26.1 kg/m2 Results Description No Information Available Procedures Date Code Description Status 04/18/2019 52[address] Chemodenervation Of Muscles Innervated By Facial Nerves, Completed Bilat Medical Devices Description No Information Available Encounters Type Date Location Provider Dx Diagnosis Office Visit 04/18/2019 [facility] Marisela Heredia, G43.719 Chronic migraine 7:[facility] w/o aura, intractable, w/o stat migr Assessments Date Code Description Provider 08/06/2019 G43.009 Migraine without aura, not intractable, Dalton Baron NP without status migrainosus 04/18/2019 G43.719 Chronic migraine without aura, intractable, Marisela Heredia M.D. without status m Plan of Treatment Future Appointment(s):11/05/2019 4:00 pm - Dalton Baron NP at [facility]08/06/2019 - Dalton Baron NPG43.009 Migraine without aura, not intractable, without status migrainosusFollow up:THREE months for Botox Functional Status Description No Information Available Mental Status Description No Information Available Referrals Description No Information Available
--- OUTSIDE RECORDS SUMMARY | 2019-09-07 17:01 | XMS REPORT | Continuity of Care Document ---
:1965 External Reference #:[id number] Author Name Nilda Montoya, GLADYS Address [address] [place] [address] Care Team Providers Name Role Phone Susy Hodges - Family Medicine Care Team Information Senior Accounting Clerk Gennaro Mayorga - Orthopaedic Surgery Care Team Information Senior Accounting Clerk Richard Zimmerman - Orthopaedic Surgery Care Team Information Senior Accounting Clerk Marisela Heredia MD - Neurology Care Team Information Senior Accounting Clerk [phone] Daniel Hernandez ([place] [facility]) Care Team Information Senior Accounting Clerk [phone] - Otolaryngology Tao Ching MD - Surgery Care Team Information Senior Accounting Clerk [phone] Jose Miguel Potter - Obstetrics & Care Team Information Senior Accounting Clerk [phone] Gynecology Problems Active Problems Provider Date Dysmenorrhea Susy Hodges M.D. Onset: 06/22/2011 Refractory migraine Susy Hodges M.D. Onset: 06/22/2011 Vitamin D deficiency Susy Hodges M.D. Onset: 06/22/2011 Family history of endocrine disorders Susy Hodges M.D. Onset: 2010 Hypothyroidism Susy Hodges M.D. Onset: 06/22/2011 Anxiety disorder Susy Hodges M.D. Onset: 11/03/2011 Tenosynovitis of hand Daniel Lao M.D. Onset: 07/19/2012 Disorder of vocal cord Daniel Lao M.D. Onset: 08/07/2012 Irritable bowel syndrome Daniel Lao M.D. Onset: 08/07/2012 Hemorrhoids without complication Daniel Lao M.D. Onset: 08/07/2012 Overweight Susy Hodges M.D. Onset: 04/20/2014 Hypothyroidism Susy Hodges M.D. Onset: 04/20/2014 Chest pain Daniel Lao M.D. Onset: 05/05/2015 Dyspnea Daniel Lao M.D. Onset: 05/05/2015 Epigastric pain Daniel Lao M.D. Onset: 05/05/2015 Adjustment disorder with mixed emotional Susy Hodges M.D. Onset: 06/01 features Shoulder joint pain Scott Case M.D. Onset: 04/20/2017 Other insomnia Susy Hodges M.D. Onset: 02/20/2018 Social History Type Date Description Comments Sex Unknown Tobacco Use Start: Unknown Never Smoked Cigarettes ETOH Use Social Alcohol 1 glass of wine 2-3 times weekly. ETOH Use Denies alcohol use 04/2014 - bothers her esophagus. Tobacco Use Start: Unknown Patient has never smoked Smoking Status Reviewed: 08/12/19 Patient has never smoked Allergies, Adverse Reactions, Alerts Description No Known Drug Allergies Medications Active Medications SIG Qnty Indications Ordering Date Provider Levothyroxine Sodium Take 1 Tablet 90tabs Susy Green 05/21/2019 Daily Trevor Hodges 88mcg Tablets Bupropion 2 by mouth 240tabs F43.21 Susy Green 12/10/2018 Hydrochloride ER (SR) every morning, Trevor Hodges 1 by mouth at 100mg Tablets ER 12HR mid day Lorazepam 1 by mouth up 120tabs F43.23 Susy Green 05/03/2018 2mg Tablets to four times Trevor Hodges daily Miralax mix 6 capfuls 1530gm K59.03 Daniel Mccoy 03/21/2018 3350NF Powder in liquid and MD Gladis drink after relief with lower tract agents. [employer] Contour Blood check blood 1units Susy Green 01/01/2018 Glucose Monitoring sugar tid DX: Trevor Hodges System E11.9 Last appt w/Device Kit 12/19/17 Lynda Contour Blood test blood 100units Susy BeebeSonal 01/01/2018 Glucose Test Strips sugar Tid DX: Trevor Hodges E11.9 Last appt Strips 12/19/17 Lynda Microlet Lancets check blood 100units Susy BeebeSonal 01/01/2018 sugar tid DX: Trevor Hodges Misc E11.9 Last appt 12/19/17 Vitamin D Take 1 Capsule 1caps Susy AbielSonal 12/19/2017 (Ergocalciferol) By Mouth Once Trevor Hodges Each Month 98708Ihky Capsules Flovent HFA inhale two Susy BeebeSonal 11/21/2017 110mcg/Act puffs by mouth Trevor Hodges Aerosol twice a day prn Ambien take 1 tablet 30tabs Susy L. 10/31/2016 10mg Tablets by mouth at Trevor Hodges bedtime as needed -- maximum daily dose of 1 per day Ventolin HFA 2 puffs every 4 1units J98.01 Susy AbielSonal 09/30/2015 108(90Base) hours as needed Trevor Hodges mcg/Act Aerosol 466.0 Valium 1-2 by mouth daily headache G43.809 Unknown 10mg Tablets Rizatriptan Benzoate 1 by mouth at onset of Unknown 5mg Tablets migraine, may repeat at 6 hours if not entirely effective Verapamil HCL ER take 1 capsule everyday at Unknown 180mg Caps ER 24HR bedtime for migraines. Ondansetron HCL take one by mouth three Unknown 8mg Tablets times daily as needed for nausea and vomiting Aimovig injection once monthly Unknown 70mg/ml Solution Auto-Inject Tizanidine 1 po qhs Unknown History Medications Note seen in this office F33.8 Avis Frost 05/20/2019 - 11/2018 today, advised decreased work hours over next 1 month d/t illness Immunizations CPT Code Status Date Vaccine Lot # [id number] Given 05/20/2019 Influenza Vac, Quadrivalent, Slit Virus, Im [id number] Given 05/28/2018 Influenza Vac, Quadrivalent, Slit Virus, Im [id number] Given 04/09/2017 Influenza Vac, [place] [id number] Given 08/07/2012 DO Not Use Split Influenza Virus Vaccine [id number] Vital Signs Date Vital Result Comment 08/12/2019 11:04am BP Systolic 128 mmHg BP Diastolic 82 mmHg Heart Rate 72 /min Body Temperature 97.2 F Height 64 inches 5'4" Weight 163.00 lb BMI (Body Mass Index) 28.0 kg/m2 05/20/2019 8:52am BP Systolic 118 mmHg BP Diastolic 60 mmHg Heart Rate 72 /min Body Temperature 98.1 F Respiratory Rate 16 /min Height 64 inches 5'4" Weight 158.38 lb BMI (Body Mass Index) 27.2 kg/m2 Results Test Acquired Date Facility Test Result H/L Range Note CBC Electronic ([facility]ma New) 08/12/2019 [facility] WBC 6.18 4.0-10.0 (607)- - RBC 3.97 3.93-6.0 Hemoglobin (Fma/CMC/CTX) 11.8 g/dL Low 12.0-17.0 Hematocrit (Fma/CMC/CTX) 36.5 % 35.0-50.0 Mean Corpuscular Vol 91.9 fL 80-95 Mean Corpuscular Hemoglobin 29.7 pg 25.6-32.2 Mean Corpuscular Hemo Concen 32.3 g/dL 32.2-36.0 Platelets 276 10^3/ul 163-400 RDW-CV 13.2 11.6-14.4 Mean Platelet Volume 8.2 fL 8.0-12.4 Absolute Neutrophils BLD 3.60 1.56-6.13 Absolute Lymphocytes 2.06 1.18-3.74 Absolute Monocytes BLD Auto 0.43 0.24-0.82 Absolute Eos Blood 0.05 0.04-0.54 Absolute Basophils 0.03 0.01-0.08 Neutrophil % 58.2 % 34.0-70.0 Lymph% 33.3 % 20.0-52.0 Monocytes % 7.0 % 5.0-12.0 Eos % 0.8 % 0.7-7.0 Basophil% 0.5 % 0-1.2 Laboratory test 08/12/2019 [facility] Monospot negative finding (607)- - ([facility]ma/Centrex) Laboratory test 08/12/2019 [facility] Culture Throat SEE RESULT 1 finding BELOW Laboratory test 05/20/2019 [facility]) Free T4 1.47 ng/dL 0.75- 1 finding .54 TSH 1.69 mIU/L 0.50-6.00 Vitamin D25 38 30-100 Laboratory test 05/20/2019 [facility] Hemoglobin A1c 5.0 % 4.1-5.7 finding (607)- - (Fma) Ua - Non Micro (Fma) 05/20/2019 [facility] Appearance clear (607)- - Color yellow Glucose, Urine (Fma/CMC/CTX) neg Bilirubin neg Ketones neg SP Grav 1.015 Blood neg PH 7.0 Protein neg Urobil 0.2 Nitrite neg Leukocytes ([facility]ma/[facility]/Centrex) neg Laboratory test 05/20/2019 [facility] Glucose 92 mg/dL 70-105 finding (607)- - Fingerstick (Fma) Laboratory test 05/20/2019 [facility] FSH (Follicle Stim 89.4 mIU/mL 2 finding Hormone) Laboratory test 02/19/2019 [facility] Hemoglobin A1c 5.4% % 4.1- 5.7 finding (607)- - (Fma) 1 SEE RESULT BELOW Name: SAMDUNIAKOMAL T : [address]: Nilda Montoya NP Acct: [id number] Unit: [id number] AGE: 54 Location: [facility] Re08/12/19 SEX: F Status: REG REF SPEC: [id number] FRENCH: 08/12/19-[address]: Nilda Montoya NP REQ: [id number] RECD: 08/12/19 STATUS: COMP _ SOURCE: THROAT SPDESC: ORDERED: Throat Culture COMMENTS: 1 bbl swab [id number] Procedure Result Reported Site Throat Culture Final 08/14/19- 1253 ML Organism 1 NORMAL CLAU Quantity 3+ Throat cultures are clinically indicated to detect the presence of group A strep, arcanobacterium and yeast. In certain cases, predominating organisms will be reported. * ML - Main Lab . END OF REPORT DEPARTMENT OF PATHOLOGY, [address] [place] [address] Chuck Chan M.D. Director [facility] # [id number] 2 Normally menstruating females - Follicular phase 3 - 9 - Mid-cycle peak 4 - 23 - Luteal phase 1 - 6 Postmenopausal females 16 - 114 Procedures Date Code Description Status 02/19/2019 00920 Finger Or Heel Stick Completed 01/14/2018 [id number] Mammogram Completed 07/16/2017 [id number] Colonoscopy Completed 05/04/2017 [id number] Colonoscopy Completed 11/09/2015 [id number] Mammogram Completed 07/06/2014 [id number] Mammogram Completed 01/30/2013 [id number] Mammogram Completed 11/22/2010 [id number] Mammogram Completed Medical Devices Description No Information Available Encounters Type Date Location Provider Dx Diagnosis Office Visit 05/20/2019 Main Office [place] Scott F33.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 E03.9 Hypothyroidism, unspecified N91.2 Amenorrhea, unspecified R73.09 Other abnormal glucose R35.0 Frequency of micturition Z23 Encounter for immunization E55.9 Vitamin D deficiency, unspecified Office Visit 04/15/2019 4:30p [place] Susy Green N95.0 Postmenopausal Office Trevor Hodges bleeding F43.23 Adjustment disorder with mixed anxiety and depressed mood Office Visit 02/19/2019 3:10p Main Office Susy Green E11.9 Type 2 diabetes Trevor Hodges mellitus without complications F43.23 Adjustment disorder with mixed anxiety and depressed mood N95.0 Postmenopausal bleeding G56.02 Carpal tunnel syndrome, left upper limb Assessments Date Code Description Provider 08/12/2019 J02.9 Acute pharyngitis, unspecified Nilda Montoya, GLADYS 05/20/2019 F33.8 Other recurrent depressive disorders Marquise Frost 05/20/2019 E03.9 Hypothyroidism, unspecified Marquise Frost-C 05/20/2019 N91.2 Amenorrhea, unspecified Marquise Frost-C 05/20/2019 R73.09 Other abnormal glucose Marquise Frost-Satish 05/20/2019 R35.0 Frequency of micturition Marquise Frost-Satish 05/20/2019 Z23 Encounter for immunization Marquise Frost-C 05/20/2019 E55.9 Vitamin D deficiency, unspecified [place] Scott, Marquise-C 04/15/2019 N95.0 Postmenopausal bleeding Susy Hodges M.D. 04/15/2019 F43.23 Adjustment disorder with mixed anxiety and Susy Hodges M.D. depressed mood 02/19/2019 E11.9 Type 2 diabetes mellitus without Susy Hodges M.D. complications 02/19/2019 F43.23 Adjustment disorder with mixed anxiety and Susy Hodges M.D. depressed mood 02/19/2019 N95.0 Postmenopausal bleeding Susy Hodges M.D. 02/19/2019 G56.02 Carpal tunnel syndrome, left upper limb Susy Hodges M.D. Plan of Treatment 08/12/2019 - Nilda Montoya, NPJ02.9 Acute pharyngitis, unspecifiedComments: patient was instructed to call or return if symptoms did not improve Supportive care: 1) Make sure you are resting. This is the only way the body can take the energy it needs to heal itself. 2) Fluids, fluids, fluids! - Drink a lot of water or other caffeine free, clear liquids - Use a humidifier in your room at night - Try either hot tea with lemon or honey or some cool ice pops if that feels better. 4) Make sure you are washing your hands well so you are not spreading your illness to the community. 5) Switch out your toothbrush to prevent reinfection. 6) you can try taking Cepacol to help ease the pain of the sore throatCall if you have any questions or concerns , worsening condition or failure to improve.AllComments:Medication Management Patient Understands medications he 's taking? Yes No Are there Barriers to Adherence? Yes No Has the patient been asked about herbal supplements and therapies, andOTC meds? Yes No Care Plan1. Patient has been queried about patient's goals/preferences and functional/ lifestyle goals at relevant visits. If relevant, describe: na2. Treatment goals as explained to the patient: above3. Are there barriers to meeting treatment goals? Yes No If Yes, please describe: polypharmacy, disease process, comorbid conditions4. Self-Management goals as described to the patient: Yes NoAs always, we strongly encourage a healthy diet and making physical activity a part of your every day life. If you have questions about how or where to start, please contact the office. Functional Status Description No Information Available Mental Status Description No Information Available Referrals Refer to Reason for Referral Status Appt Date [facility] Consult and treat. Office notes, Scheduled radiology report, labs and triage faxed. [address] [place] [address] [phone] Jose Miguel Potter PM Bleeding jw Scheduled [address] [place] [address] [phone] Troy Everett MD Consult and treat. Office note, labs and Created 2018 demographics faxed. [facility] [address] [place] [address] [phone]
--- OUTSIDE RECORDS SUMMARY | 2019-09-07 17:01 | XMS REPORT | Summary of Care ---
:1965 Author Organization [facility] Address [address] [facility] [place] [address] Care Team Providers Name Role Phone Susy Hodges MD Primary Care Provider Reason for Referral MRI/CAT/PET Scan (Routine) Status Reason Specialty Diagnoses / Referred By Referred To Procedures Contact Contact Pending Review Diagnoses Traumatic tear of medial meniscus of right knee, initial encounter Richard Zimmerman, Procedures MR LOWER EXTREMITY JOINT WO CONTRAST RIGHT [address] [facility] [place] [address] [address] Reason for Visit Reason Comments New Patient Right knee pain. DOI: 04-02-19. Patient tripped over a drawer that was left on the floor landing directly on her right knee. Worker's Compensation DOI: 04-02-19 [facility] Encounter Details Date Type Department Care Team Description 08/01/2019 Office Visit [facility] - Richard Zimmerman MD Traumatic tear of [place] [address] [facility] medial meniscus of [address] [facility] [address] right knee, [place] [address] encounter ([place] [address] Dx) [phone] Allergies No Known Allergiesdocumented as of this encounter (statuses as of 08/01/2019) Medications Medication Sig Dispensed Refills Start Date [...] as of this encounter (statuses as of 08/01/2019) Active Problems Problem Noted Date Thumb pain, right 05/02/2019 Carpal tunnel syndrome of left wrist 03/20/2019 Overview: Added automatically from request for surgery [id number] Disorders of bursae and tendons in shoulder region, unspecified 02/16/2014 Shoulder pain, right 10/03/2013 documented as of this encounter (statuses as of 08/01/2019) Social History Tobacco Use Types Packs/Day Years [...] Sign Reading Time Taken Comments Blood Pressure 115/71 08/01/2019 8:31 AM EST Pulse 75 08/01/2019 8:31 AM EST Temperature - - Respiratory Rate - - Oxygen Saturation - - Inhaled Oxygen Concentration - - Weight 71.2 kg (157 lb) 08/01/2019 8:31 AM EST Height 165.1 cm (5' 5") 08/01/2019 8:31 AM EST Body Mass Index 26.13 08/01/2019 8:31 AM EST documented in this encounter Progress Notes Richard Zmimerman MD - 08/01/2019 8:00 AM EST Name: Rashmi Madison : 1965 Date of Service: 08/01/2019 Referring Provider: Self-Referred Primary Care Provider: Susy Hodges Chief Complaint Patient presents with New Patient Right knee pain. DOI: 04-02-19. Patient tripped over a drawer that was left on the floor landing directly on her right knee. Worker's Compensation DOI: 04-02-19 [facility] History of Present Illness: Rashmi Madison is a 54-y.o. female who presents for a new visit. The patient presents with right knee pain and problem. Current symptoms include: swelling: intensity 4/10. Onset of the symptoms was several months ago. Inciting event: Fell at work. Aggravating symptoms:standing, pivoting. Patient's overall course: stable. Patient has had prior lower extremity problems. Past Medical History: Diagnosis Date Anxiety Migraines Thyroid disease Past Surgical History: Procedure Laterality Date CARPAL TUNNEL RELEASE 2008 right LAPAROSCOPIC TUBAL LIGATION LEEP, CONIZATION OF CERVIX Current Outpatient Medications Medication Sig ACETAMINOPHEN PO Take by mouth. buPROPion HCl (WELLBUTRIN PO) Take by mouth. diazePAM (VALIUM PO) Take by mouth. Erenumab-aooe (AIMOVIG) 70 MG/ML Subcutaneous Solution Auto-injector Inject beneath the skin. ibuprofen (MOTRIN) 800 MG Oral Tab Take 800 mg by mouth EVERY SIX HOURS NEEDED for Pain. levothyroxine (SYNTHROID) 88 MCG Oral Tab Take 88 mcg by mouth BEFORE BREAKFAST. LORazepam (ATIVAN) 2 MG Oral Tab methylPREDNISolone, dose-gilbert, (MEDROL) 4 MG Oral Tablet Therapy Pack Take as directed ondansetron (ZOFRAN ODT) 8 MG Oral TABLET DISPERSIBLE Rizatriptan Benzoate 10 MG Oral Tab Tizanidine HCl (ZANAFLEX) 2 MG Oral Cap Verapamil (ISOPTIN SR, CALAN SR) 180 MG Oral Tab CR No current facility-administered medications for this visit. . No Known Allergies Social History Socioeconomic History Marital status: Spouse name: Not on file Number of children: Not on file Years of education: Not on file Highest education level: Not on file Occupational History Not on file Social Needs Financial resource strain: Not on file Food insecurity Worry: Not on file Inability: Not on file Transportation needs Medical: Not on file Non-medical: Not on file Tobacco Use Smoking status: Never Smoker Smokeless tobacco: Never Used Substance and Sexual Activity Alcohol use: Yes Alcohol/week: 1.7 standard drinks Types: 2 Standard drinks or equivalent per week Frequency: 2-3 times a week Drug use: Not on file Sexual activity: Not on file Lifestyle Physical activity Days per week: Not on file Minutes per session: Not on file Stress: Not on file Relationships Social connections Talks on phone: Not on file Gets together: Not on file Attends scientologist service: Not on file Active member of club or organization: Not on file Attends meetings of clubs or organizations: Not on file Relationship status: Not on file Intimate partner violence Fear of current or ex partner: Not on file Emotionally abused: Not on file Physically abused: Not on file Forced sexual activity: Not on file Other Topics Concern Not on file Social History Narrative Not on file Family History Problem Relation Age of Onset Diabetes Maternal Grandmother Stroke Maternal Grandmother Arthritis Mother Arthritis Father Cancer Father Heart Father Cancer Sister ROS: Review of systems intake completed by clinical staff. I have reviewed and agree with their documentation. Physical Examination: BP 115/71 | Pulse 75 | Ht 5' 5" (1.651 m) | Wt 157 lb (71.2 kg) | BMI 26.13 kg/m Patient was examined in the supine position. She has a minimal effusion. Patient has extension 0, flexion 120. Patient has tenderness on palpation of the medial and posteromedial joint line. Patient has no tenderness on palpation of the lateral joint line. Patient has Positive Kai's test with respect to the medial joint line. Patient has Negative River's test at 25 - 30 degrees flexion. Patient has Negative Fermin's test. Patient walks without an antalgic gait with respect to the right extremity. X-Ray: X-rays of right knee, Ap, lateral skyline and notch views were obtained. moderate changes arenoted in the medial compartment;minimal changes are noted in the lateral compartment;minimal are noted in the patella-femoral compartment. 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 All questions were answered. Work up: MRI. Follow up: After MRI noted.. Author: Richard Zimmerman MD 08/01/2019 08:37 documented in this encounter Plan of Treatment Name Type Priority Associated Diagnoses Order Schedule MR LOWER EXTREMITY Imaging Routine Traumatic tear of medial Expected: 08/01, JOINT WO CONTRAST RIGHT meniscus of right knee, Expires: 07/31/2020 initial encounter Health Maintenance Due Date Last Done Comments [...] filedocumented in this encounter Visit Diagnoses Diagnosis Traumatic tear of medial meniscus of right knee, initial encounter documented in this encounter Insurance Payer Benefit Plan / Subscriber ID Effective Dates Phone Address Type Group [facility] [place]WORK[place] xxxxxxxx-xxx 2019-[employer] Workers Comp COMP [facility] GENERIC [phone] [id number] (Work) documented as of this encounter
[2019-09-07 17:06] LABS: Albumin 4.7 g/dL (3.2-5.2); Albumin/Globulin Ratio 1.7 (1-3); C Reactive Protein 2.49 mg/L (<8.01); Calcium 10.7 mg/dL (8.6-10.3); EGFR African American 59.5 (>60); EGFR Non-African American 49.2 (>60); Globulin 2.8 g/dL (2-4); Potassium 4.1 mmol/L (3.5-5.0); Total Bilirubin 0.5 mg/dL (0.2-1.0); Total Protein 7.5 g/dL (6.4-8.9)
[2019-09-07 17:13] LABS: Urine Appearance Clear; Urine Bilirubin Negative (Negative); Urine Blood 1+ (Negative); Urine Color Straw; Urine Glucose Negative (Negative); Urine Ketones Negative (Negative); Urine Nitrite Negative (Negative); Urine Protein Negative (Negative); Urine Specific Gravity 1.004 (1.010-1.030); Urine Urobilinogen Negative (Negative)
[2019-09-07] MEDS ORDERED: Iodixanol* (CONTRAST) 320 MG/ML 100 ML SDV IV ONE (17:41)
[2019-09-07 17:50] LABS: Urine Bacteria 1+ (Absent); Urine Red Blood Cell Trace(0-2/hpf) (Absent); Urine Squamous Epithelial Cell Present (Absent); Urine White Blood Cell Trace(0-5/hpf) (Absent)
[2019-09-07 19:27] VITALS: BP 151/90
== END 2019-09-07 19:27 | disposition home or self-care (01) ==
LOC: ED 16:12
DX: K29.70 Gastritis, unspecified, without bleeding (principal); E11.9 Type 2 diabetes mellitus without complications; J45.909 Unspecified asthma, uncomplicated; Z88.5 Allergy status to narcotic agent; Z88.8 Allergy status to other drugs, medicaments and biological substances; Z87.891 Personal history of nicotine dependence
CPT/HCPCS: 36415; 71045; 74177; 80053; 81003; 81015; 82270; 83690; 84484; 85025; 86140; 87086; 93005; 96374; 96375; 99284; J2270; J2405; Q9967

== ENCOUNTER 2019-09-12 05:37 | Emergency (ER) | payer BC ==
--- OUTSIDE RECORDS SUMMARY | 2019-09-12 05:46 | XMS REPORT | Continuity of Care Document ---
:1965 External Reference #:[id number] Author Name Susy Hodges M.D. Address [address] [place] [address] Care Team Providers Name Role Phone Suys Hodges - Family Medicine Care Team Information Sink Maker Gennaro Mayorga - Orthopaedic Surgery Care Team Information Sink Maker Richard Zimmerman - Orthopaedic Surgery Care Team Information Sink Maker [phone] Marisela Heredia MD - Neurology Care Team Information Sink Maker [phone] Daniel Hernandez ([place] - Direct) Care Team Information Sink Maker - Otolaryngology Tao Ching MD - Surgery Care Team Information Sink Maker [phone] Jose Miguel Potter - Obstetrics & Care Team Information Sink Maker [phone] Gynecology Problems Active Problems Provider Date Dysmenorrhea [...] drink after relief with lower tract agents. AllergEase Blood check blood 1units Susy Green 01/01/2018 [...] Vitamin D Take 1 Capsule 1caps Susy Green 12/19/2017 (Ergocalciferol) By Mouth Once Trevor Hodges Each Month [id number] Capsules Flovent HFA inhale two Susy L. 11/21/2017 110mcg/Act puffs by mouth Trevor Hodges Aerosol twice a day prn Ambien take 1 tablet 30tabs Susy Green 10/31/2016 10mg Tablets by mouth at Trevor Hodges bedtime as needed -- maximum daily dose of 1 per day Ventolin HFA 2 puffs every 4 1units J98.01 Susy L. 09/30/2015 108(90Base) hours as needed Trevor Hodges [...] CPT Code Status Date Vaccine Lot # [id number] Given 05/20/2019 Influenza Vac, Quadrivalent, Slit Virus, Im [id number] Given 05/28/2018 Influenza Vac, Quadrivalent, Slit Virus, Im [id number] Given 04/09/2017 Influenza Vac, [place]riv[place] [id number] Given 08/07/2012 DO Not Use Split Influenza Virus Vaccine [id number] Vital Signs Date Vital Result Comment 09/10/2019 11:20am BP Systolic 124 mmHg BP Diastolic 88 mmHg Heart Rate 80 /min Body Temperature 98.6 F Respiratory Rate 15 /min Height 64 inches 5'4" Weight 164.00 lb BMI (Body Mass Index) 28.1 kg/m2 08/12/2019 11:04am BP Systolic 128 mmHg BP Diastolic 82 mmHg Heart Rate 72 /min Body Temperature 97.2 F Height 64 inches 5'4" Weight 163.00 lb BMI (Body Mass Index) 28.0 kg/m2 Results Test Acquired Date Facility Test Result H/L Range Note Urinalysis Profile 09/07/2019 [facility] [place] Color Straw Urine Appearance Clear Urine Specific [place] 1.004 Low 1.010-1.030 Urine pH 5.0 Normal 5-9 Urine Urobilinogen Negative Negative Urine Ketones Negative Negative Urine Protein Negative Negative Urine Leukocytes Negative Negative Urine Blood 1+ Abnormal Negative Urine Nitrite Negative Negative Urine Bilirubin Negative Negative Urine Glucose Negative Negative Urine White Blood Cell Trace(0-5/hpf) Absent Urine Red Blood Cell Trace(0-2/hpf) Absent Urine Bacteria 1+ Abnormal Absent Urine Squamous Epithelial Cell Present Abnormal Absent Urine Culture And 09/07/2019 [facility] [place]rine Culture SEE RESULT 1 Sensitivities BELOW CBC Auto Diff 09/07/2019 [facility] [place] White Blood 6.6 10^3/uL Normal 3.5-10.8 Count Red Blood Count 4.20 10^6/uL Normal 3.70-4.87 Hemoglobin 12.9 g/dL Normal 12.0-16.0 Hematocrit 38 % Normal 35-47 Mean Corpuscular Volume 90 fL Normal 80-97 Mean Corpuscular Hemoglobin 31 pg Normal 27-31 Mean Corpuscular HGB Conc 34 g/dL Normal 31-36 Red Cell Distribution Width 14 % Normal 10-15 Platelet Count 333 10^3/uL Normal 150-450 Mean Platelet Volume 6.7 fL Low 7.4-10.4 Abs Neutrophils 4.5 10^3/uL Normal 1.5-7.7 Abs Lymphocytes 1.7 10^3/uL Normal 1.0-4.8 Abs Monocytes 0.3 10^3/uL Normal 0-0.8 Abs Eosinophils 0.0 10^3/uL Normal 0-0.6 Abs Basophils 0.1 10^3/uL Normal 0-0.2 Abs Nucleated RBC 0.0 10^3/uL Granulocyte % 67.2 % Lymphocyte % 26.4 % Monocyte % 4.7 % Eosinophil % 0.6 % Basophil % 1.1 % Nucleated Red Blood Cells % 0.0 Comp Metabolic Panel 09/07/2019 [facility] [place] Sodium 140 mmol/L Normal 135-145 Potassium 4.1 mmol/L Normal 3.5-5.0 Chloride 105 mmol/L Normal 101-111 Co2 Carbon Dioxide 28 mmol/L Normal 22-32 Anion Gap 7 mmol/L Normal 2-11 Glucose 101 mg/dL High 70-100 Blood Urea Nitrogen 15 mg/dL Normal 6-24 Creatinine 1.15 mg/dL High 0.51-0.95 BUN/Creatinine Ratio 13.0 Normal 8-20 Calcium 10.7 mg/dL High 8.6-10.3 Total Protein 7.5 g/dL Normal 6.4-8.9 Albumin 4.7 g/dL Normal 3.2-5.2 Globulin 2.8 g/dL Normal 2-4 Albumin/Globulin Ratio 1.7 Normal 1-3 Total Bilirubin 0.50 mg/dL Normal 0.2-1.0 Alkaline Phosphatase 25 U/L Low 34-104 Alt 15 U/L Normal 7-52 Ast 17 U/L Normal 13-39 Egfr Non- 49.2 >60 Egfr 59.5 >60 2 Laboratory test finding 09/07/2019 [facility] [place] Lipase 44 U/L Normal 11.0-82.0 C Reactive Protein 2.49 mg/L Normal <8.01 Troponin-I (TnI) 0.00 ng/mL <0.03 3 Stool Occult 09/07/2019 [facility] [place] Stool Occult SEE RESULT 4 Blood, Screen Blood, Screen BELOW CBC Electronic 08/12/2019 [facility] WBC 6.18 4.0-10.0 (Fma New) (607)- - RBC 3.97 3.93-6.0 Hemoglobin (Fma/CMC/CTX) [...] Basophil% 0.5 % 0-1.2 Laboratory test 08/12/2019 [facility] Monospot negative finding (607)- - (Fma/Centrex) Laboratory test 08/12/2019 [facility] [place] Culture Throat SEE RESULT 5 finding BELOW Laboratory test 05/20/2019 [facility](a) Free T4 1.47 ng/dL 0.75- 1 finding .54 TSH 1.69 mIU/L 0.50-6.00 Vitamin D25 38 30-100 Laboratory test 05/20/2019 [facility] Hemoglobin A1c 5.0 % 4.1-5.7 finding (607)- - (Fma) Ua - Non Micro (Fma) 05/20/2019 [facility] medicine Appearance clear (607)- - Color yellow Glucose, Urine (Fma/CMC/CTX) neg Bilirubin neg Ketones neg SP Grav 1.015 Blood neg PH 7.0 Protein neg Urobil 0.2 Nitrite neg Leukocytes (Fma/CMC/Centrex) neg Laboratory test 05/20/2019 [facility] Glucose 92 mg/dL 70-105 finding (607)- - Fingerstick (Fma) Laboratory test 05/20/2019 [facility] [place] FSH (Follicle Stim 89.4 mIU/mL 6 finding Hormone) 1 SEE RESULT BELOW Name: KOMAL MADISON : [address]: Ry Aguilar Acct: [id number] Unit: [id number] AGE: 54 Location: ED Re09/07/19 SEX: F Status: DEP ER SPEC: [id number] FRENCH: 09/07/19-[address]: Ry Parsons DO REQ: [id number] RECD: 09/07/19 STATUS: REGINA DC DR: Susy Hodges MD _ SOURCE: URINE SPDESC: ORDERED: Urine Culture Procedure Result Reported Site Urine Culture Final 09/08/19- 1347 ML No growth of clinically significant organisms * ML - Main Lab . END OF REPORT DEPARTMENT OF PATHOLOGY, [address] [place] [address] Chuck Chan M.D. Director [facility] # [id number] 2 Because ethnic data is not always readily available, this report includes an eGFR for both -Americans and non- Americans. The National Kidney Disease Education Program (NKDEP) does not endorse the use of the MDRD equation for patients that are not between the ages of 18 and 70, are , have extremes of body size, muscle mass, or nutritional status, or are non- or non-. According to the National Kidney Foundation, irrespective of diagnosis, the stage of the disease is based on the level of kidney function: Stage Description GFR(mL/min/1.73 m(2)) 1 Kidney damage with normal or decreased GFR 90 2 Kidney damage with mild decrease in GFR 60-89 3 Moderate decrease in GFR 30-59 4 Severe decrease in GFR 15-29 5 Kidney failure <15 (or dialysis) 3 Troponin-I testing on Plasma Separator Tubes (PST) has a known false positive rate of 0.20-0.40%. All positive troponins reflex immediately to secondary confirmatory testing. Using the Stellar DxI 800 Access Immunoassay systems, the 99th percentile upper reference limit was demonstrated to be < 0.03 ng/mL. 4 SEE RESULT BELOW Name: KOMAL MADISON : [address]: Ry Aguilar Acct: [id number] Unit: [id number] AGE: 54 Location: ED Re09/07/19 SEX: F Status: REG ER SPEC: [id number] FRENCH: 09/07/19-[address]: Ry Wheelermarci REQ: [id number] RECD: 09/07/19 STATUS: REGINA DC DR: Susy Hodges MD _ SOURCE: STOOL SPDESC: ORDERED: Occult Bl, Scn Procedure Result Reported Site Stool Occult Blood (1) Final 09/07/19- 170 ML Stool Occult Blood Negative Collection Date (1) 09/07/19 * ML - Main Lab . END OF REPORT DEPARTMENT OF PATHOLOGY, [address] [place] [address] Chuck Chan M.D. Director [facility] # [id number] 5 SEE RESULT BELOW Name: KOMAL MADISON : [address]: Nilda Montoya NP Acct: [id number] Unit: [id number] AGE: 54 Location: [facility] Re08/12/19 SEX: F Status: REG REF SPEC: [id number] FRENCH: 08/12/19-[address]: Nilda Montoya NP REQ: [id number] RECD: 08/12/19 STATUS: COMP _ SOURCE: THROAT SPDESC: ORDERED: Throat Culture COMMENTS: 1 bbl swab [id number] Procedure Result Reported Site Throat Culture Final 08/14/19- 1253 ML Organism 1 NORMAL CLAU Quantity 3+ Throat cultures are clinically indicated to detect the presence of group A strep, arcanobacterium and yeast. In certain cases, predominating organisms will be reported. * ML - Main Lab . END OF REPORT DEPARTMENT OF PATHOLOGY, [address] [place] [address] Chuck Chan M.D. Director [facility] # [id number] 6 Normally menstruating females - Follicular phase 3 - 9 - Mid-cycle peak 4 - 23 - Luteal phase 1 - 6 Postmenopausal females 16 - 114 Procedures Date Code Description Status 01/14/2018 23802488 Mammogram Completed 07/16/2017 [id number] Colonoscopy Completed 05/04/2017 [id number] Colonoscopy Completed 11/09/2015 [id number] Mammogram Completed 07/06/2014 [id number] Mammogram Completed 01/30/2013 [id number] Mammogram Completed 11/22/2010 [id number] Mammogram Completed Medical Devices Description No Information Available Encounters Type Date Location Provider Dx Diagnosis Office Visit 08/12/2019 Main Office Nilda Barreto J02.9 Acute pharyngitis, 11:00a GLADYS Montoya unspecified Office Visit 05/20/2019 Main Office [place] Scott, 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 08/12/2019 J02.9 Acute pharyngitis, unspecified Nilda Montoya NP 05/20/2019 F33.8 Other recurrent depressive disorders [place] Scott, [facility] 05/20/2019 E03.9 Hypothyroidism, unspecified [place] Scott, [facility] 05/20/2019 N91.2 Amenorrhea, unspecified [place] [facility], [facility] 05/20/2019 R73.09 Other abnormal glucose [place] [facility] 05/20/2019 R35.0 Frequency of micturition [place] [facility] 05/20/2019 Z23 Encounter for immunization [place] Scott, [facility] 05/20/2019 E55.9 Vitamin D deficiency, unspecified [place] Scott, [facility] 04/15/2019 N95.0 Postmenopausal bleeding Susy Hodges M.D. 04/15/2019 F43.23 Adjustment disorder with mixed anxiety and Susy Hodges M.D. depressed mood Plan of Treatment Future Appointment(s):09/18/2019 6:00 pm - Susy Hodges M.D. at Main [id number]/10/2019 - Susy Hodges M.D.R10.84 Generalized abdominal painNew Xrays:Ultrasound Abdominal Limited, Ordered: 09/10/19Comments:you have an appointment with Nita at the GI office at 3:15 pm today. Please get there at 3:00 pm.Ok to take zofran three times daily will get an urgent Ultrasound to look at your gallbladder.AllComments:Medication Management Patient Understands medications she 's taking? Yes No Are there Barriers to Adherence? Yes No Has the patient been asked about herbal supplements and therapies, and OTC meds? Yes No Care Plan1. Patient has been queried about patient's goals/preferences and functional/lifestyle goals at relevant visits. If relevant, describe: na2. Treatment goals as explained to the patient: above3. Are there barriers to meeting treatment goals? Yes No If Yes, please describe:4. Self-Management goals as described to the patient: Yes No Functional Status Description No Information Available Mental Status Description No Information Available Referrals Refer to Reason for Referral Status Appt Date [facility] Consult and treat. Office notes, Scheduled radiology report, labs and triage faxed. [facility] [address] [place] [address] [phone] Jose Miguel Potter PM Bleeding jw Scheduled [place] [address] [phone]
[2019-09-12] MEDS ORDERED: Ondansetron INJ* 2 MG/ML VIAL IV ONE (05:57)
[2019-09-12] MEDS ORDERED: NS 0.9% 1000 ML** 1,000 ML IV ONE ×2 (05:57→06:35)
[2019-09-12] MEDS ORDERED: Morphine 4 MG/ML VIAL (1 ml) 4 MG/ML VIAL IV ONE ×2 (05:57→07:39)
--- NOTE | 2019-09-12 06:02 | ED ---
GI/ HPI - HPI Summary HPI Summary: 54-year-old female presents with severe bowel pain today. pain started at 3 AM. She states that she was seen here Sunday for the same pain and had a negative work up. States that the pain dissipated little bit and she followed up with her primary and GI. They started her on a regiment by GI that has help with the pain. She has had nausea and vomiting today. no diarrhea. Denies any urinary symptoms. No previous bowel surgeries. No chest pressures or shortness of breath. No vaginal bleeding. - History of Current Complaint Chief Complaint: EDAbdPain Time Seen by Provider: 09/12/19 05:51 Stated Complaint: ABD PAIN PER PT Pain Intensity: 10 - Allergy/Home Medications Allergies/Adverse Reactions: Allergies Allergy/AdvReac Type Severity Reaction Status Date / Time sumatriptan [From Imitrex] AdvReac Severe Vomiting Verified 09/12/19 06:48 codeine AdvReac Mild Vomiting Verified 09/12/19 06:48 Home Medications: Home Medications Diazepam TAB(*) [Valium TAB(*)] 10 - 20 mg PO DAILY PRN 01/05/14 [History Confirmed 09/12/19] Levothyroxine TAB* [Synthroid 88 MCG TAB*] 88 mcg PO DAILY 01/05/14 [History Confirmed 09/12/19] Zolpidem TAB* [Ambien*] 10 mg PO BEDTIME PRN MDD 1 tab 01/05/14 [History Confirmed 09/12/19] Albuterol HFA INHALER* [Ventolin HFA Inhaler*] 2 puff INH Q4H PRN 09/12/19 [ History Confirmed 09/12/19] Amoxicillin/Clavulanate TAB* [Augmentin TAB 500 mg*] 500 mg PO BID #13 tab 09/12 [Rx] Cholecalciferol TAB* [Vitamin D TAB*] 50,000 units PO MONTHLY 09/12/19 [History Confirmed 09/12/19] Erenumab-Aooe [Aimovig Autoinjector] 70 mg SUBCUT MONTHLY 09/12/19 [History Confirmed 09/12/19] Fluticasone HFA 110 mcg(NF) [Flovent HFA 110 mcg(NF)] 2 puff INH BID 09/12/19 [ History Confirmed 09/12/19] HYDROcodone/ACETAMIN 5-325 MG* [Dameron 5-325 TAB*] 1 tab PO Q4H PRN #12 tab MDD 6 09/12/19 [Rx] LORazepam(nf) [Ativan TAB(nf)] 2 mg PO QID 09/12/19 [History Confirmed 09/12/19] Ondansetron ODT TAB* [Zofran 4 MG Odt TAB*] 4 mg PO Q6H PRN #20 tab.odt [Rx] Ondansetron TAB* [Zofran 4 MG Tab*] 8 mg PO TID PRN 09/12/19 [History Confirmed 09/12/19] Polyethylene Glycol 3350* [Miralax (17 GM DOSE BIA)] 17 gm PO DAILY 09/12/19 [ History Confirmed 09/12/19] Rizatriptan Benzoate [Rizatriptan] 5 mg PO .AT ONSET OF HEADACH 09/12/19 [ History Confirmed 09/12/19] Verapamil HCl [Verapamil HCl Sr] 180 mg PO BEDTIME PRN 09/12/19 [History Confirmed 09/12/19] buPROPion TAB* [Wellbutrin TAB*] 100 mg PO .MID DAY 09/12/19 [History Confirmed 09/12/19] buPROPion TAB* [Wellbutrin TAB*] 200 mg PO QAM 09/12/19 [History Confirmed 09/12] metroNIDAZOLE [Flagyl 500 MG TAB] 500 mg PO TID #20 tab 09/12/19 [Rx] tiZANidine TAB* [Zanaflex TAB*] 2 mg PO BEDTIME 09/12/19 [History Confirmed ] PMH/Surg Hx/FS Hx/Imm Hx Endocrine/Hematology History: Reports: Hx Diabetes - NO MEDS BALANCES FOOD AND DIET Cardiovascular History: Denies: Hx Hypertension, Hx Pacemaker/ICD Respiratory History: Reports: Hx Asthma - INHAILER NEEDED GI History: Reports: Other GI Disorders - ABD PAIN UNKNOW ORIGIN-FOLLOWING GASTRO DOCTOR History: Denies: Hx Renal Disease Sensory History: Denies: Hx Hearing Aid Neurological History: Reports: Hx Migraine Psychiatric History: Reports: Hx Anxiety, Hx Depression Denies: Hx Panic Disorder - Cancer History Hx Chemotherapy: No Hx Radiation Therapy: No - Surgical History Surgery Procedure, Year, and Place: TUBAL LIGATION; BENIGN LUMP-PART OF TONSILS REMOVED - Immunization History Date of Tetanus Vaccine: Unknown Infectious Disease History: Denies: Traveled Outside the [place] in Last 30 Days - Family History Known Family History: Positive: Other - migraine - Social History Alcohol Use: Daily Alcohol Amount: wine 1 glass Hx Substance Use: No Substance Use Type: Reports: Marijuana Hx Tobacco Use: No Smoking Status (MU): Former Smoker Review of Systems Negative: Fever Negative: Chest Pain Negative: Shortness Of Breath Positive: Abdominal Pain, Vomiting, Nausea. Negative: Diarrhea All Other Systems Reviewed And Are Negative: Yes Physical Exam Triage Information Reviewed: Yes Vital Signs On Initial Exam: Initial Vitals Temp Pulse Resp Pulse Ox 97.4 F 90 28 100 09/12/19 05:44 09/12/19 05:44 09/12/19 05:44 09/12/19 05:44 Vital Signs Reviewed: Yes Appearance: Positive: Well-Appearing Skin: Positive: Warm, Dry Head/Face: Positive: Normal Head/Face Inspection Eyes: Positive: Normal, Conjunctiva Clear ENT: Positive: Pharynx normal Respiratory/Lung Sounds: Positive: Clear to Auscultation, Breath Sounds Present Cardiovascular: Positive: Normal, RRR Abdomen Description: Positive: Soft, Other: - severe pain in lower abd, no rebound tenderness Bowel Sounds: Positive: Present Pelvic Exam: Positive: External Exam Normal, Speculum Exam Normal, Bimanual Exam Normal, No Cerv. Motion Tender Musculoskeletal: Positive: Normal Neurological: Positive: Normal Psychiatric: Positive: Normal Procedures - Sedation Patient Received Moderate/Deep Sedation with Procedure: No Diagnostics - Vital Signs Vital Signs Temp Pulse Resp Pulse Ox 09/12/19 05:48 89 100 09/12/19 05:44 97.4 F 90 28 100 - Laboratory Result Diagrams: 09/12/19 06:06 09/12/19 06:06 Lab Statement: Any lab studies that have been ordered have been reviewed, and results considered in the medical decision making process. - CT abd CT Interpretation Completed By: Radiologist Summary of CT Findings: IMPRESSION: Low density lesion in the liver unchanged from September 07, 2019. Further characterization with ultrasound and MRI could BE performed. There is wall thickening of the transverse colon, descending colon and sigmoid colon suspicious for colitis. No abscess is noted. - Ultrasound No standard instances Ultrasound Interpretation Completed By: Radiologist Summary of Ultrasound Findings: IMPRESSION: Fibroid in the posterior body. There is a mass in the right adnexa which may represent a pedunculated fibroid or normal-appearing right ovary. Transabdominal ultrasound is suggested for follow-up. Patient could not do transabdominal ultrasound due to poor bladder distention at the current time. - EKG No standard instances Cardiac Rate: NL EKG Rhythm: Sinus Rhythm EKG Comparison: No Significant Change Summary of EKG Findings: sinus rhythm Re-Evaluation - Re-Evaluation First Eval Re-Evaluation Time: 07:15 Comment: patient started to scream in pain again Second Eval Re-Evaluation Time: 08:24 Change: Improved Comment: pain better, tolerated pelvic states has pressure on exam no CMT GIGU Course/Dx - Course Course Of Treatment: 54-year-old female presents with severe bowel pain today. pain started at 3 AM. She states that she was seen here Sunday for the same pain and had a negative work up. States that the pain dissipated little bit and she followed up with her primary and GI. They started her on a regiment by GI that has help with the pain. She has had nausea and vomiting today. no diarrhea. Denies any urinary symptoms. No previous bowel surgeries. No chest pressures or shortness of breath. No vaginal bleeding. On exam has tenderness in the lower abdomen. Is screaming in pain. wbc 13. crp normal. lactic 2.3 likely from vomiting. lipase normal. lfts normal. gave dose of morphine and patient stopped screaming. patient had massive amount of diarrhea here and is feeling better. u/s shows fibroid vs normal ovary. patient states has history of fibriod. CT shows colitis. will discharge on augmentin and flagyl. gave short course of pain meds and zofran. told follow up with primary. patient understand and agrees with plan. - Diagnoses Differential Diagnoses - Female: Bowel Obstruction, Diverticulitis, Gastritis, Gastroenteritis (Viral) Provider Diagnoses: Colitis Discharge ED - Sign-Out/Discharge Documenting (check all that apply): Patient Departure - Discharge Plan Condition: Good Disposition: HOME Prescriptions: Amoxicillin/Clavulanate TAB* [Augmentin TAB 500 mg*] 500 mg PO BID #13 tab HYDROcodone/ACETAMIN 5-325 MG* [Dameron 5-325 TAB*] 1 tab PO Q4H PRN #12 tab MDD 6 PRN Reason: Pain - Severe metroNIDAZOLE [Flagyl 500 MG TAB] 500 mg PO TID #20 tab Ondansetron ODT TAB* [Zofran 4 MG Odt TAB*] 4 mg PO Q6H PRN #20 tab.odt PRN Reason: Nausea Patient Education Materials: Colitis (ED) Referrals: Susy Hodges MD [Primary Care Provider] - Additional Instructions: Take augmentin twice a day for 7 days, first dose given in ED Take Flagyl every 8 hours for 7 days, first dose given in ED Take up to two tablets of Zofran every 6 hours for nausea follow bland diet take tyenlol every 6 hours for pain, use norco every 4-6 hours for severe pain as needed follow up with primary Return to ED if develop any new or worsening symptoms - Billing Disposition and Condition Condition: GOOD Disposition: Home
[2019-09-12 06:15] LABS: ABS Basophils 0.1 10^3/ul (0-0.2); ABS Lymphocytes 1.4 10^3/ul (1.0-4.8); ABS Monocytes 0.5 10^3/ul (0-0.8); ABS Neutrophils 11.7 10^3/ul (1.5-7.7); Eosinophil % 0.2 %; Hematocrit 37 % (35-47); Hemoglobin 12.7 g/dL (12.0-16.0); Mean Corpuscular HGB Conc 34 g/dL (31-36); Mean Corpuscular Hemoglobin 30 pg (27-31); Mean Corpuscular Volume 89 fL (80-97); Mean Platelet Volume 6.6 fL (7.4-10.4); Platelet Count 364 10^3/uL (150-450); Red Blood Count 4.18 10^6 /uL (3.70-4.87); Red Cell Distribution Width 14 % (10-15); White Blood Count 13.7 10^3/uL (3.5-10.8)
[2019-09-12 06:32] LABS: Albumin 4.5 g/dL (3.2-5.2); Albumin/Globulin Ratio 1.6 (1-3); BUN/Creatinine Ratio 22.2 (8-20); C Reactive Protein 3.81 mg/L (<8.01); Calcium 10.1 mg/dL (8.6-10.3); EGFR Non-African American 52.9 (>60); Globulin 2.9 g/dL (2-4); Potassium 3.5 mmol/L (3.5-5.0); Total Bilirubin 0.5 mg/dL (0.2-1.0); Total Protein 7.4 g/dL (6.4-8.9)
[2019-09-12] MEDS ORDERED: Ketorolac INJ* 30 MG/ML 1 ML VIAL IV PUSH ONE (07:15)
[2019-09-12] MEDS ORDERED: Pantoprazole IV* 40 MG IV ONE (07:21)
[2019-09-12] MEDS ORDERED: Metoclopramide IV* 5 MG/ML 2 ML VIAL IV SLOW PU ONE (07:22)
[2019-09-12 07:27] LABS: Urine Appearance Clear; Urine Bilirubin Negative (Negative); Urine Blood Negative (Negative); Urine Color Amber; Urine Glucose Negative (Negative); Urine Ketones 1+ (Negative); Urine Nitrite Negative (Negative); Urine Protein Negative (Negative); Urine Specific Gravity 1.018 (1.010-1.030); Urine Urobilinogen Negative (Negative)
[2019-09-12] MEDS ORDERED: Iodixanol* (CONTRAST) 320 MG/ML 100 ML SDV IV ONE (08:48)
[2019-09-12] MEDS ORDERED: metroNIDAZOLE TAB* 250 MG PO ONE (11:24)
[2019-09-12] MEDS ORDERED: Amoxicillin/Clavulanate TAB* 500 MG PO ONE (11:24)
[2019-09-12 11:42] VITALS: BP 119/68
[2019-09-15 13:47] LABS: Chlamydia trachomatis NAA Negative (Negative); Neisseria gonorrhoeae (GC) NAA Negative (Negative)
[2019-09-15 14:07] LABS: Trichomonas vag NAA Female Negative (Negative)
== END 2019-09-12 11:41 | disposition home or self-care (01) ==
LOC: ED 05:37
DX: K52.9 Noninfective gastroenteritis and colitis, unspecified (principal); E11.9 Type 2 diabetes mellitus without complications; E03.9 Hypothyroidism, unspecified; J45.909 Unspecified asthma, uncomplicated; F41.9 Anxiety disorder, unspecified; F32.9 Major depressive disorder, single episode, unspecified; Z98.51 Tubal ligation status; Z87.891 Personal history of nicotine dependence; Z79.890 Hormone replacement therapy; Z79.899 Other long term (current) drug therapy; Z88.5 Allergy status to narcotic agent; Z88.8 Allergy status to other drugs, medicaments and biological substances
CPT/HCPCS: 36415; 74177; 76830; 80053; 81003; 82150; 83605; 83690; 84484; 85025; 86140; 87480; 87491; 87510; 87591; 87661; 93005; 96361; 96374; 96375; 96376; 99284; A9270-GY; J1885; J2270; J2405; J2765; Q9967

== ENCOUNTER 2020-01-23 00:34 | Observation (INO) ==
[2020-01-23] MEDS ORDERED: Metoclopramide 5 MG/ML VIAL (10 mg) IV SLOW PU ONE (01:09)
[2020-01-23] MEDS ORDERED: diPHENhydraMINE IV 50 MG/ML 1 ml VIAL (BENADRYL) SLOW PUSH ONE (01:10)
[2020-01-23 01:33] LABS: ABS Lymphocytes 0.5 10^3/ul (1.0-4.8); ABS Monocytes 0.1 10^3/ul (0-0.8); Hematocrit 37 % (35-47); Hemoglobin 12.6 g/dL (12.0-16.0); Lymphocyte % 6.6 %; Mean Corpuscular HGB Conc 34 g/dL (31-36); Mean Corpuscular Hemoglobin 31 pg (27-31); Mean Corpuscular Volume 91 fL (80-97); Mean Platelet Volume 6.9 fL (7.4-10.4); Platelet Count 262 10^3/uL (150-450); Red Blood Count 4.05 10^6 /uL (3.70-4.87); Red Cell Distribution Width 15 % (10-15); White Blood Count 7.6 10^3/uL (3.5-10.8)
[2020-01-23] MEDS ORDERED: NS 0.9% 1000 ml BAG 1,000 ML IV ONE (01:42)
[2020-01-23 01:44] LABS: Albumin 4.5 g/dL (3.2-5.2); Calcium 9.3 mg/dL (8.6-10.3); Potassium 3.7 mmol/L (3.5-5.0); Total Bilirubin 0.4 mg/dL (0.2-1.0)
[2020-01-23 01:50] LABS: Albumin/Globulin Ratio 1.6 (1-3); EGFR African American 97.4 (>60); EGFR Non-African American 80.5 (>60); Globulin 2.9 g/dL (2-4); Total Protein 7.4 g/dL (6.4-8.9)
[2020-01-23 03:23] LABS: Urine Benzodiazepine Screen Presumptive Positive (None Detect); Urine Opiates Screen Presumptive Positive (None Detect)
[2020-01-23] MEDS ORDERED: Ondansetron 4 mg VIAL 2 MG/ML 2 ml VIAL IV ONE (06:20)
[2020-01-23] MEDS ORDERED: Naloxone 0.4 mg VIAL 0.4 mg/ml 1 ml VIAL ONE (11:09)
[2020-01-23] MEDS: Naloxone 0.4 mg VIAL 0.4 mg/ml 1 ml VIAL IV PUSH ONE ×2 (11:11→11:15)
[2020-01-23 11:41] LABS: C Reactive Protein 2.57 mg/L (<8.01)
[2020-01-23] MEDS ORDERED: Ondansetron ODT 4 mg TAB 4 MG TAB PO PRN (13:26)
[2020-01-23] MEDS ORDERED: Albuterol HFA INHALER 8 gm MDI INH PRN (13:26)
[2020-01-23] MEDS ORDERED: NS 0.9% 1000 ml BAG 1,000 ML IV SCH (13:30)
[2020-01-23] MEDS ORDERED: Heparin 5000 UNITS/ML VIAL(*) 1 ml vial SUBCUT SCH (14:00)
[2020-01-23] MEDS ORDERED: Mometasone 220 MCG MDI INH PRN (14:54)
[2020-01-23 17:11] LABS: TSH (Thyroid Stimulating Horm) 0.28 mcIU/mL (0.34-5.60)
[2020-01-23] MEDS ORDERED: levETIRAcetam 1000MG IVPREMIX 1,000 MG/100 ML BAG IVPB ONE (19:50)
[2020-01-23] MEDS ORDERED: fentaNYL 100 mcg/2 ml 50 MCG/ML VIAL IV SLOW PU PRN (20:21)
[2020-01-23] MEDS ORDERED: Ondansetron 4 mg VIAL 2 MG/ML 2 ml VIAL IV PRN (20:27)
[2020-01-23 20:40] LABS: INR 1.01 (0.82-1.09)
[2020-01-23 20:41] LABS: Activated Partial Thrombo Time 25.1 seconds (26.0-38.0)
[2020-01-23] MEDS ORDERED: Iohexol 350 (CONTRAST) 500 ML MDV IV ONE (21:17)
[2020-01-23 23:57] VITALS: BP 152/90
[2020-01-24] MEDS ORDERED: Levothyroxine 100 MCG/5 ML VIAL IV SCH (06:00)
[2020-01-24] MEDS ORDERED: Polyethylene Glycol 3350 17 GM PACKET PO SCH (09:00)
[2020-01-24] MEDS ORDERED: buPROPion SR 100 mg TAB.SR PO SCH (09:00)
== END 2020-01-24 00:29 | disposition short-term general hospital (02) ==
LOC: ED 00:34 → MED 00:34 → ICU 19:48
PROVIDERS: ADMIT Internal Medicine; ATTEND Internal Medicine